=== PATIENT | female | born 1955 | race Caucasian/White ===

== ENCOUNTER 2016-11-22 09:17 | Emergency (ER) | payer OTHER, MEDICAID ==
[2016-11-22 09:20] VITALS: BP 156/77; BMI 32.1
[2016-11-22] MEDS ORDERED: DILAUDID INJ IM ONE (09:24)
--- NOTE | 2016-11-22 09:25 | DR.FBACK ---
HPI - Time Seen Time seen: 09:22 - PCP Primary Care Physician: YOVANI SHAIKH - Complaint Chief Complaint Doctor Comments: Patient states that she bent over on yesterday to pickling grader something and has been in pain since. She admits to back surgery and takes percocet 10-325 and it has not eased the pain. Chief Complaint:: PT. STATES YESTERDAY SHE BENT OVER TO PICK SOMETHING UP AND HER BACK "CAUGHT" AND SHE HAD A HARD TIME STANDING BACK UP. PT. C/O LOWER BACK PAIN. - Source History Provided: Patient - Mode of Arrival Mode of Arrival: Ambulatory - Timing Onset of Chief Complaint: 11/21/16 PMH - PMH Past Medical History: Yes Past Medical History: Hypertension Past Medical History Comment: CHRONIC BACK PAIN, TIA Past Surgical History: Yes Surgical History: Appendectomy, , Hysterectomy, Joint Replacement, Ortho Surgery - Family History History of Family Medical Conditions: Yes Family Medical History: Diabetes Mellitus, Cancer, [place], Sudden Cardiac , Hypertension - Social History Does patient currently use any type of tobacco product: No Have you used tobacco products in the last 12 months: No Type of Tobacco Use: None Does any household member use tobacco: No Alcohol Use: None Do you use any recreational Drugs:: No Lives With: Significant Other Lives Where: Home - infectious screening In the last 2 months have you had wt loss of >10#?: NO Have you had fever, night sweats or hemotysis?: No Have you traveled outside the country in the last 6 months?: No Isolation: Standard ROS - Review of Systems Eyes: No Symptoms Reported ENTM: No Symptoms Reported Respiratoy: No Symptoms Reported Cardiovascular: No Symptoms Reported Gastrointestinal/Abdominal: No Symptoms Reported Genitourinary: No Symptoms Reported Neurological: No Symptoms Reported Musculoskeletal: Back Pain Integumentary: No Symptoms Reported Hematologic/Lymphatic: No Symptoms Reported Endocrine: No Symptoms Reported, Increased Hunger Psychiatric: No Symptoms Reported All Other Systems: Reviewed and Negative PE - Vitals Vital Signs: Temp Pulse Resp BP BP BP Pulse Ox 11/22/16 09:17 97.8 F 73 20 156/77 98 07/15/16 11:23 116/63 04/01/14 11:57 169/85 04/01/14 04:00 139/70 - General Limitations: No Limitations General Appearance: Alert, In No Apparent Distress - Head Head Exam: Normal Inspection, Atraumatic - Eyes Eye exam: Normal Appearance, PERRL, EOMI - ENT ENT Exam: Normal Exam - Chest Chest Inspection: Normal Inspection - Respiratory Respiratory Exam: Normal Lung Sounds Bilat Respiratory Exam: Bilateral Clear to Auscultation - Cardiovascular Cardiovascular Exam: Regular Rate, Normal Rhythm - Abdominal Exam Abdominal Exam: Normal Inspection Abdominal Tenderness: negative: RUQ, RLQ, LUQ, LLQ, Epigastrium, Suprapubic, Diffuse, Mild, Moderate, Severe, Other - Genitourinary External Exam: Female: Deferred : Speculum Exam (Female): Deferred : Bimanual Exam (female): Deferred - Extremities Extremities Exam: Normal Inspection, Full ROM - Back Back Exam: Normal Inspection - Neurological Neurological Exam: Alert, Oriented X3, CN II-XII Intact - Psychiatric Psychiatric Exam: Normal Affect - Skin Skin Exam: Warm, Dry, Intact Course - Reevaluation 1st: Improved (1230), Unchanged - Diagnosis Discharge Problem: Protruded lumbar disc - Discharge Plan Condition: Stable Prescriptions: Oxycodone W/ Acetaminophen [Percocet 10-325 mg] 1 tab PO Q4-6H PRN #12 tab PRN Reason: Severe Pain - Follow ups/Referrals Follow ups/Referrals: TOD AUSTIN [Primary Care Provider] - 3 days - Instructions
[2016-11-22] MEDS ORDERED: DILAUDID INJ ONE (09:27)
[2016-11-22] MEDS ORDERED: VALIUM INJ IM ONE (09:51)
[2016-11-22] MEDS ORDERED: VALIUM INJ ONE (09:53)
--- NOTE | 2016-11-22 11:32 | CT ---
HISTORY: Back pain Study: CT lumbar spine without contrast Comparison: None Technique: Axial non contrast images with coronal and sagittal reformats. Dose reduction procedures were used with MA/kv adjusted for body size. Findings: The bones are mildly osteopenic. The alignment is normal. The vertebral bodies are of average height . The pedicles, spinous processes, and posterior elements are intact. The SI joints and sacrum are n ormal. The disc levels are evaluated as follows: L1-2 level: No evidence for compressive disc disease. The neural foramina are patent. The joints are normal. L2-3 level: There is broad-based disc bulging which effaces the thecal sac and contributes to mild l ateral recess narrowing bilaterally. The joints are normal. L3-4 level: There is broad-based disc bulging which contributes along with pedicular shortening liga mentous hypertrophy and mild facet arthropathy to a relative spinal stenosis with marked lateral rec ess and foraminal narrowing bilaterally slightly worse on the right than the left. L4-5 level: There is degenerative disc disease with vacuum phenomenon present. There is broad-based disc protrusion with some subligamentous extrusion of disc material caudally and to the left. These findings contribute along with spondylitic change to foraminal narrowing an lateral recess narrowing bilaterally left worse than right. MRI may be of further diagnostic value. L5-S1 level: Broad-based disk bulging is present. The bulging disk abuts but does not displace the n erve roots. The bulging contributes to mild lateral recess narrowing bilaterally. Bilateral facet ar thropathy is present. IMPRESSION: As above Reported By:
== END 2016-11-22 12:35 | disposition home or self-care (01) ==
LOC: ER 09:31
DX: M51.06 Intervertebral disc disorders with myelopathy, lumbar region (principal)
CPT/HCPCS: 72131; 96372; 99282; 99283; J3360

== ENCOUNTER 2018-01-18 08:48 | Observation (INO) ==
[2018-01-18] MEDS ORDERED: TYLENOL 325 MG TAB PO PRN (10:13)
[2018-01-18] MEDS ORDERED: BENADRYL INJ 50 MG VIAL IVP PRN (10:13)
[2018-01-18] MEDS ORDERED: NS 1000 ML 1,000 ML ONE (10:17)
[2018-01-18] MEDS: NS 1000 ML 1,000 ML IV SCH (10:39)
[2018-01-18] MEDS: NS 500 ML IV 500 ML IV ONE ×2 (10:39→16:50)
[2018-01-18 11:23] LABS: ALANINE AMINOTRANSFERASE 15 Units/L (12-78); ALBUMIN 3.6 g/dL (3.4-5.0); ALKALINE PHOSPHATASE 36 Units/L (46-116); ASPARTATE AMINO TRANSFERASE 16 Units/L (15-37); BLOOD UREA NITROGEN 24 mg/dL (7-18); CALCIUM 9.1 mg/dL (8.5-10.1); CARBON DIOXIDE 29.2 mmol/L (21-32); CHLORIDE 105 mmol/L (98-107); COR NA(FOR HYPERGLY) 144 mmol/L (136-145); CREATININE 1.25 mg/dL (0.55-1.02); SODIUM 143 mmol/L (136-145); TOTAL PROTEIN 7.4 g/dL (6.4-8.2); eGFR NON BLACK RACES 46 (>60)
[2018-01-18 11:26] LABS: BASOPHILS # (AUTO) 0.1 X10^3/uL (0.0-0.1); BASOPHILS % (AUTO) 1.1 % (0.2-1.0); EOSINOPHILS # (AUTO) 0.1 x10^3/uL (0.0-0.2); HEMATOCRIT 21.7 % (36.0-47.0); LYMPHOCYTES # (AUTO) 1.4 X10^3/uL (1.3-2.9); LYMPHOCYTES % (AUTO) 26.3 % (21.0-51.0); MEAN CORPUSCULAR HEMOGLOBIN 22.8 pg (27.0-34.0); MEAN CORPUSCULAR HGB CONC 30.9 g/dL (33.0-35.0); MEAN CORPUSCULAR VOLUME 73.7 fL (80.0-100.0); MEAN PLATELET VOLUME 8.1 fL (7.4-11.0); MONOCYTES # (AUTO) 0.4 x10^3/uL (0.3-0.8); MONOCYTES % (AUTO) 6.9 % (0.0-13.0); NEUTROPHILS # (AUTO) 3.4 x10^3/uL (2.2-4.8); NEUTROPHILS % (AUTO) 63.7 % (42.0-75.0); PLATELET COUNT 486 X10^3/uL (150.0-450.0); RED BLOOD COUNT 2.94 X10^6/uL (3.5-5.4); RED CELL DISTRIBUTION WIDTH 19.1 % (11.6-16.5); WHITE BLOOD COUNT 5.3 X10^3/uL (3.6-10.0)
[2018-01-18 11:34] LABS: HEMOGLOBIN 6.7 g/dL (12.0-16.0)
[2018-01-18 11:45] LABS: HYPOCHROMASIA 1+; PLATELET MORPHOLOGY COMMENT NORMAL (NORMAL)
[2018-01-18] MEDS: PERCOCET TAB 5/325 MG PO SCH ×3 (14:21→21:58)
[2018-01-18 14:46] VITALS: BMI 36.8
[2018-01-18] MEDS ORDERED: NS 250 ML IV 250 ML IV ONE ×2 (16:24→22:39)
[2018-01-18] MEDS ORDERED: AMBIEN PO PRN (21:12)
[2018-01-19] MEDS: NS 1000 ML 1,000 ML IV SCH ×2 (01:34→14:38)
[2018-01-19] MEDS: PERCOCET TAB 5/325 MG PO PRN ×3 (04:33→19:50)
[2018-01-19 05:32] LABS: BASOPHILS # (AUTO) 0.1 X10^3/uL (0.0-0.1); BASOPHILS % (AUTO) 1.2 % (0.2-1.0); EOSINOPHILS # (AUTO) 0.2 x10^3/uL (0.0-0.2); EOSINOPHILS % (AUTO) 2.4 % (0.9-2.9); HEMATOCRIT 30.6 % (36.0-47.0); HEMOGLOBIN 9.8 g/dL (12.0-16.0); LYMPHOCYTES # (AUTO) 1.4 X10^3/uL (1.3-2.9); LYMPHOCYTES % (AUTO) 20.3 % (21.0-51.0); MEAN CORPUSCULAR HEMOGLOBIN 24.2 pg (27.0-34.0); MEAN CORPUSCULAR VOLUME 75.6 fL (80.0-100.0); MEAN PLATELET VOLUME 8.1 fL (7.4-11.0); MONOCYTES # (AUTO) 0.7 x10^3/uL (0.3-0.8); MONOCYTES % (AUTO) 9.9 % (0.0-13.0); NEUTROPHILS # (AUTO) 4.5 x10^3/uL (2.2-4.8); NEUTROPHILS % (AUTO) 66.2 % (42.0-75.0); PLATELET COUNT 472 X10^3/uL (150.0-450.0); RED BLOOD COUNT 4.05 X10^6/uL (3.5-5.4); RED CELL DISTRIBUTION WIDTH 19.5 % (11.6-16.5); WHITE BLOOD COUNT 6.7 X10^3/uL (3.6-10.0)
[2018-01-19 05:50] LABS: ALANINE AMINOTRANSFERASE 16 Units/L (12-78); ALBUMIN 3.7 g/dL (3.4-5.0); ALKALINE PHOSPHATASE 37 Units/L (46-116); ASPARTATE AMINO TRANSFERASE 17 Units/L (15-37); BLOOD UREA NITROGEN 18 mg/dL (7-18); CALCIUM 9.2 mg/dL (8.5-10.1); CARBON DIOXIDE 26.8 mmol/L (21-32); CHLORIDE 103 mmol/L (98-107); CREATININE 1.08 mg/dL (0.55-1.02); SODIUM 140 mmol/L (136-145); TOTAL PROTEIN 7.6 g/dL (6.4-8.2); eGFR NON BLACK RACES 55 (>60)
[2018-01-19 06:22] LABS: ANISOCYTOSIS 1+; HYPOCHROMASIA 2+; MICROCYTOSIS SLIGHT; PLATELET MORPHOLOGY COMMENT NORMAL (NORMAL)
[2018-01-19] MEDS ORDERED: PATIENT'S HOME MEDICATION (Esomeprazole Magnesium [Nexium 40mg Cap] 40 MG) PO SCH (10:00)
[2018-01-19] MEDS: NexIUM PO SCH ×2 (11:36→21:09)
[2018-01-19] MEDS: SYNTHROID 112 mcg TAB PO SCH (11:37)
[2018-01-19] MEDS: SINGULAIR TAB 10 MG PO SCH (11:37)
[2018-01-19] MEDS: NORVASC TAB 5 MG PO SCH (11:37)
[2018-01-19] MEDS: ZESTORETIC 20/25 MG PO SCH (11:37)
[2018-01-19 13:41] LABS: HEMATOCRIT 31.3 % (36.0-47.0)
[2018-01-19] MEDS ORDERED: PATIENT'S HOME MEDICATION (Gabapentin [Gabapentin] 800 MG) PO SCH (14:00)
[2018-01-19] MEDS: NEURONTIN CAP 400 MG PO SCH ×2 (14:39→21:09)
[2018-01-19] MEDS: SOMA TAB 350 MG PO SCH ×2 (14:39→21:10)
[2018-01-19] MEDS ORDERED: AMBIEN PO SCH (21:00)
[2018-01-19] MEDS ORDERED: ZOLOFT PO SCH (21:00)
[2018-01-19] MEDS ORDERED: TRICOR TAB 145 MG PO SCH (21:00)
[2018-01-19] MEDS ORDERED: LIPITOR TAB 40 MG PO SCH (21:00)
[2018-01-19 22:51] LABS: HEMATOCRIT 29.8 % (36.0-47.0); HEMOGLOBIN 9.6 g/dL (12.0-16.0)
[2018-01-20] MEDS: PERCOCET TAB 5/325 MG PO PRN ×2 (03:51→08:39)
[2018-01-20 05:25] LABS: BASOPHILS # (AUTO) 0.1 X10^3/uL (0.0-0.1); BASOPHILS % (AUTO) 0.9 % (0.2-1.0); EOSINOPHILS # (AUTO) 0.2 x10^3/uL (0.0-0.2); EOSINOPHILS % (AUTO) 2.7 % (0.9-2.9); HEMATOCRIT 31.2 % (36.0-47.0); HEMOGLOBIN 9.8 g/dL (12.0-16.0); LYMPHOCYTES # (AUTO) 1.9 X10^3/uL (1.3-2.9); LYMPHOCYTES % (AUTO) 25.8 % (21.0-51.0); MEAN CORPUSCULAR HEMOGLOBIN 23.8 pg (27.0-34.0); MEAN CORPUSCULAR HGB CONC 31.5 g/dL (33.0-35.0); MEAN CORPUSCULAR VOLUME 75.6 fL (80.0-100.0); MEAN PLATELET VOLUME 8.2 fL (7.4-11.0); MONOCYTES # (AUTO) 0.9 x10^3/uL (0.3-0.8); MONOCYTES % (AUTO) 11.9 % (0.0-13.0); NEUTROPHILS # (AUTO) 4.4 x10^3/uL (2.2-4.8); NEUTROPHILS % (AUTO) 58.7 % (42.0-75.0); PLATELET COUNT 477 X10^3/uL (150.0-450.0); RED BLOOD COUNT 4.12 X10^6/uL (3.5-5.4); RED CELL DISTRIBUTION WIDTH 19.6 % (11.6-16.5); WHITE BLOOD COUNT 7.5 X10^3/uL (3.6-10.0)
[2018-01-20] MEDS: NEURONTIN CAP 400 MG PO SCH (05:35)
[2018-01-20] MEDS: SOMA TAB 350 MG PO SCH (05:36)
[2018-01-20 05:48] LABS: ALANINE AMINOTRANSFERASE 14 Units/L (12-78); ALBUMIN 3.5 g/dL (3.4-5.0); ALKALINE PHOSPHATASE 37 Units/L (46-116); ASPARTATE AMINO TRANSFERASE 16 Units/L (15-37); BLOOD UREA NITROGEN 19 mg/dL (7-18); CARBON DIOXIDE 26.6 mmol/L (21-32); CHLORIDE 105 mmol/L (98-107); CREATININE 1.12 mg/dL (0.55-1.02); SODIUM 141 mmol/L (136-145); TOTAL PROTEIN 7.3 g/dL (6.4-8.2); eGFR NON BLACK RACES 53 (>60)
[2018-01-20 05:57] LABS: CALCIUM 8.9 mg/dL (8.5-10.1)
[2018-01-20 06:07] LABS: PLATELET MORPHOLOGY COMMENT NORMAL (NORMAL)
[2018-01-20 06:08] LABS: ANISOCYTOSIS SLIGHT; HYPOCHROMASIA 1+; MICROCYTOSIS SLIGHT; STOMATOCYTES SLIGHT
[2018-01-20] MEDS: NS 1000 ML 1,000 ML IV SCH (07:08)
[2018-01-20] MEDS: ZESTORETIC 20/25 MG PO SCH (08:35)
[2018-01-20] MEDS: NORVASC TAB 5 MG PO SCH (08:35)
[2018-01-20] MEDS: SYNTHROID 112 mcg TAB PO SCH (08:35)
[2018-01-20] MEDS: SINGULAIR TAB 10 MG PO SCH (08:35)
[2018-01-20] MEDS: NexIUM PO SCH (08:35)
--- NOTE | 2018-01-20 08:39 | DR.UPDATE ---
H&P Update History and Physical Update: WAS SEEN IN THE OFFICE ON 01/17/18. OUTPATIENT LABS WERE OBTAINED AND REVEALED A HGB OF 6.8, HCT 23.6. PATIENT WAS ADMITTED FOR FURTHER EVALUATION AND TREATMENT ON 01/18/18. A H&P WAS COMPLETED PRIOR TO ADMISSION. PATIENT HAS BEEN SEEN AND EXAMINED WITH NO CHANGES NOTED TO H&P. Changes noted: NO Yes with the following:
--- NOTE | 2018-01-20 08:41 | PCM.PROG ---
Progress Note - Progress Note for Day of Date: 01/19/18 - Subjective Subjective: WAS ADMITTED FOR ANEMIA AND GENERALIZED WEAKNESS. TODAY, SHE IS ALERT AND ORIENTED, LYING IN BED ON MORNING ROUNDS. SHE CONTINUES WITH COMPLAINTS OF GENERALIZED WEAKNESS THIS MORNING, BUT WITH SOME IMPROVEMENT SINCE ADMISSION. SHE RECEIVED TWO UNITS OF PACKED RED BLOOD CELLS LAST NIGHT. HER VITALS THIS MORNING ARE 98.4-70-20-98%-122/87. LABS WERE OBTAINED. ABNORMAL LAB VALUES INCLUDE THE FOLLOWING: HGB 9.8, HCT 30.6, BUN 24, CREATININE 1.25, GLUCOSE 127, ALK PHOS 36. TODAY, WE WILL CONTINUE TO MONITOR HER HEMOGLOBIN AND HEMATOCRIT AND TRANSFUSE ADDITIONAL UNITS OF PRBC IF NEEDED. OTHERWISE, WE PLAN TO FOLLOW UP WITH AM LABS AND CONTINUE TO MONITOR PATIENT. - Past Medical Family Social History Past Med/Fam/Surg Hx: No changes since H&P Allergies: Allergies No Known Drug Allergies Allergy (Verified 01/18/18 10:24) - Review of Systems ROS: No change since H&P - Vital Signs and I&O's Vital Signs: Temperature 98.2 F Pulse Rate [Left Brachial] 67 Pulse Rate [Right Brachial] 84 Respiratory Rate 18 Blood Pressure [Right Arm] 148/69 Blood Pressure [Left Arm] 135/62 Blood Pressure 156/77 O2 Sat by Pulse Oximetry 97 Intake and Output: Intake & Output 01/17/18 01/18/18 01/19/18 01/20/18 11:59 11:59 11:59 11:59 Intake Total 890 / 890 1920 / 1920 Balance 890 / 890 1920 / 1920 - Physical Exam Oriented: Normal Eyes: Normal Ear: Normal Nose: Normal Throat: Normal Respiratory: Normal Cardiovascular: Normal : Normal Auscultation: Bowel Sounds: Normal Palpation: Normal Tenderness: Normal Skin: Normal Musculoskeletal: Normal Psychiatric: Normal Mood Description: Calm Affect: Normal Speech Pattern: Clear, Appropriate - Laboratory and Diagnostics Result Diagrams: 01/20/18 04:15 01/20/18 04:15 Labs: Laboratory WBC 7.5 X10^3/uL (3.6-10.0) 01/20/18 04:15 RBC 4.12 X10^6/uL (3.5-5.4) 01/20/18 04:15 Hgb 9.8 g/dL (12.0-16.0) L 01/20/18 04:15 Hct 31.2 % (36.0-47.0) L 01/20/18 04:15 MCV 75.6 fL (80.0-100.0) L 01/20/18 04:15 MCH 23.8 pg (27.0-34.0) L 01/20/18 04:15 MCHC 31.5 g/dL (33.0-35.0) L 01/20/18 04:15 RDW 19.6 % (11.6-16.5) H 01/20/18 04:15 Plt Count 477 X10^3/uL (150.0-450.0) H 01/20/18 04:15 Plt Count Comment Adequate (ADEQUATE) 01/20/18 04:15 MPV 8.2 fL (7.4-11.0) 01/20/18 04:15 Neut % (Auto) 58.7 % (42.0-75.0) 01/20/18 04:15 Lymph % (Auto) 25.8 % (21.0-51.0) 01/20/18 04:15 [place] % (Auto) 11.9 % (0.0-13.0) 01/20/18 04:15 Eos % (Auto) 2.7 % (0.9-2.9) 01/20/18 04:15 Baso % (Auto) 0.9 % (0.2-1.0) 01/20/18 04:15 Neut # (Auto) 4.4 x10^3/uL (2.2-4.8) 01/20/18 04:15 Lymph # (Auto) 1.9 X10^3/uL (1.3-2.9) 01/20/18 04:15 [place] # (Auto) 0.9 x10^3/uL (0.3-0.8) H 01/20/18 04:15 Eos # (Auto) 0.2 x10^3/uL (0.0-0.2) 01/20/18 04:15 Baso # (Auto) 0.1 X10^3/uL (0.0-0.1) 01/20/18 04:15 Absolute Nucleated RBC 0.1 /100WBC 01/20/18 04:15 Plt Morphology Comment Normal (NORMAL) 01/20/18 04:15 RBC Morphology Abnormal (NORMAL) A 01/20/18 04:15 Hypochromasia 1+ A 01/20/18 04:15 Anisocytosis Slight A 01/20/18 04:15 Microcytosis Slight A 01/20/18 04:15 Macrocytosis 1+ A 01/19/18 04:55 Stomatocytes Slight A 01/20/18 04:15 Sodium 141 mmol/L (136-145) 01/20/18 04:15 Corrected Sodium TNP 01/20/18 04:15 Potassium 3.9 mmol/L (3.5-5.1) 01/20/18 04:15 Chloride 105 mmol/L (98-107) 01/20/18 04:15 Carbon Dioxide 26.6 mmol/L (21-32) 01/20/18 04:15 BUN 19 mg/dL (7-18) H 01/20/18 04:15 Creatinine 1.12 mg/dL (0.55-1.02) H 01/20/18 04:15 Est GFR (MDRD) Af Amer > 60 (>60) 01/20/18 04:15 Est GFR (MDRD) Non-Af 53 (>60) L 01/20/18 04:15 Glucose 90 mg/dL (65-99) 01/20/18 04:15 Calcium 8.9 mg/dL (8.5-10.1) 01/20/18 04:15 Corrected Calcium TNP 01/20/18 04:15 Total Bilirubin 0.20 mg/dL (0.2-1.0) 01/20/18 04:15 AST 16 Units/L (15-37) 01/20/18 04:15 ALT 14 Units/L (12-78) 01/20/18 04:15 Alkaline Phosphatase 37 Units/L (46-116) L 01/20/18 04:15 Total Protein 7.3 g/dL (6.4-8.2) 01/20/18 04:15 Albumin 3.5 g/dL (3.4-5.0) 01/20/18 04:15 Globulin 3.8 g/dL (2.5-4.5) 01/20/18 04:15 Albumin/Globulin Ratio 0.9 Ratio (1.1-2.1) L 01/20/18 04:15 Stool Description Fob tube 01/18/18 13:35 Stl Occult Blood (IFOB) Negative (NEGATIVE) 01/18/18 13:35 Blood Type O POSITIVE 01/18/18 10:57 Antibody Screen Negative 01/18/18 10:57 Crossmatch See Detail 01/18/18 10:57 - Plan (1) Anemia Status: Acute Qualifiers: Anemia type: iron deficiency Iron deficiency anemia type: unspecified iron deficiency Qualified Code(s): D50.9 - Iron deficiency anemia, unspecified Plan: MONITOR H&H AND TRANSFUSE ADDITIONAL UNITS OF PRBC IF NEEDED
[2018-01-20 12:19] VITALS: BP 142/62
--- NOTE | 2018-02-16 00:03 | DR.CARTERD ---
- Discharge Summary for: Discharge Summary for Date of:: 01/20/18 - Admission Date Date of Admission: 01/18/18 - Admission Diagnoses Admission Diagnosis: (1) Symptomatic Anemia (2) Shortness of breath (3) Weakness - Discharge Date Discharge Date: 01/20/18 - Discharge Diagnoses Discharge Diagnosis: (1) Symptomatic Anemia (2) Shortness of breath (3) Weakness - Hospital Course Hospital Course: Day one, Ms. Quick presented to the hospital as a direct admission after being seen in the office one day prior. Outpatient labs revealed a low hemoglobin of 6.6. Patient stated she became weak with breathing problems and no energy. Symptoms started two weeks prior and had become worse. Patient admitted to the hospital as observation and labs obtained on arrival revealed a hemoglobin of 6.7. Patient received two units of PRBCs. Medical History: TIA, Hypertension, Gerd, UTI's, Muscle Weakness, Back Pain, Hypothyroidism, Anemia. Abnormal Labs: RBC 2.94, Hgb 6.7, Hct 21.7, MCV 73.7, MCH 22.8, MCHC 30.9, RDW 19.1, Plt count 486, BUN 24, Creatinine 1.25, GFR af 56, GFR non 46, Glucose 127 , Alk Phos 36, A/G Ratio 0.9. Day two, Ms. Quick was admitted for anemia and generalized weakness. She was alert and oriented, lying in bed on morning rounds. SHe continued with complaints of generalized weakness, but with some improvement since admission. She received two units of packed red blood cells through the night. Her vitals were: 98.4-70-20-98%-122/87. Abnormal labs were: Hgb 9.8, Hct 30.6, Bun 24, Creat 1.25, Glucose 127, Alk phos 36. We continued treatment and continued to monitor Hemoglobin and Hematocrit. Day three, Hemoglobin remained stable at 9.8. Patient reported she felt well. She denied weakness or shortness of breath. Patient was doing well with no acute distress noted. Vital signs stable. Labs wnl. We planned for discharge. Instructions for medications and follow up were discussed with patient and family, both voiced understanding. Patient discharged home in stable condition with family. - Discharge Medications Discharge Medications: Home Medication List hydrochlorothiazide 25 mg PO DAILY 01/18/18 [History] lisinopril-hydrochlorothiazide 20 - 25 mg PO DAILY 01/18/18 [History] oxycodone-acetaminophen 10 - 325 mg PO QID 01/18/18 [History] zolpidem 10 mg PO HS 01/18/18 [History] iron-folic acid-mv, min cmb#15 [Hemocyte-Plus] 1 cap PO DAILY #30 cap 01/20/18 [ Rx] Prescriptions: iron-folic acid-mv, min cmb#15 [Hemocyte-Plus] [facility] [place] Home medications Aspirin [[place] Aspirin EC Low Dose] 81 mg PO DAILY 10/10/12 Clopidogrel Bisulfate [Plavix] 75 mg PO DAILY 10/10/12 Esomeprazole Magnesium [Nexium 40MG CAP] 40 mg PO BID 10/10/12 carisoprodol 350 mg PO TID 10/10/12 fenofibrate nanocrystallized 145 mg PO HS 10/10/12 levothyroxine 112 mcg PO DAILY 10/10/12 montelukast 10 mg PO DAILY 10/10/12 sertraline 50 mg PO HS 10/10/12 atorvastatin 40 mg PO HS 03/26/14 clonazepam 1 mg PO HS 03/26/14 gabapentin 800 mg PO TID 03/26/14 - Discharge Disposition Discharge Disposition: Patient is to follow up in our office in one week.
== END 2018-01-20 13:20 | disposition home or self-care (01) ==
LOC: MED/SURG
PROVIDERS: ADMIT Internal Medicine; ATTEND Internal Medicine
DX: R94.4 Abnormal results of kidney function studies; E87.5 Hyperkalemia; D50.8 Other iron deficiency anemias; Z79.899 Other long term (current) drug therapy; R53.83 Other fatigue; R73.09 Other abnormal glucose
CPT/HCPCS: 36415; 36430; 80053; 82270; 85014; 85018; 85025; 86850; 86900; 86901; 86922; 94760; A4222; P9016; G0378; J1200; J3490; J7030; J7040; J7050

== ENCOUNTER 2018-05-12 09:08 | Inpatient (IN) ==
[2018-05-12] MEDS ORDERED: TUSSIONEX PENNKINETIC SUSP PO PRN (09:42)
[2018-05-12] MEDS ORDERED: NS 1/2 1000 ML IV 1,000 ML IV ONE (09:54)
[2018-05-12 10:18] LABS: BASOPHILS # (AUTO) 0.1 X10^3/uL (0.0-0.1); BASOPHILS % (AUTO) 1.2 % (0.2-1.0); EOSINOPHILS # (AUTO) 0.2 x10^3/uL (0.0-0.2); EOSINOPHILS % (AUTO) 3.4 % (0.9-2.9); HEMATOCRIT 27.5 % (36.0-47.0); LYMPHOCYTES # (AUTO) 1.8 X10^3/uL (1.3-2.9); LYMPHOCYTES % (AUTO) 35.2 % (21.0-51.0); MEAN CORPUSCULAR HEMOGLOBIN 28.8 pg (27.0-34.0); MEAN CORPUSCULAR HGB CONC 32.7 g/dL (33.0-35.0); MEAN CORPUSCULAR VOLUME 88.2 fL (80.0-100.0); MEAN PLATELET VOLUME 8.3 fL (7.4-11.0); MONOCYTES # (AUTO) 0.6 x10^3/uL (0.3-0.8); MONOCYTES % (AUTO) 12.8 % (0.0-13.0); NEUTROPHILS # (AUTO) 2.4 x10^3/uL (2.2-4.8); NEUTROPHILS % (AUTO) 47.4 % (42.0-75.0); PLATELET COUNT 456 X10^3/uL (150.0-450.0); RED BLOOD COUNT 3.12 X10^6/uL (3.5-5.4); RED CELL DISTRIBUTION WIDTH 15.1 % (11.6-16.5)
--- NOTE | 2018-05-12 10:25 | RAD ---
Examination: Chest, PA and lateral views History: Cough and fever Comparison 03/31/2014 Findings: Continued normal heart size with clear lungs and pleural spaces. Impression: No change; no acute findings. Reported By:
[2018-05-12 10:27] LABS: ALANINE AMINOTRANSFERASE 23 Units/L (12-78); ALBUMIN 3.7 g/dL (3.4-5.0); ALKALINE PHOSPHATASE 43 Units/L (46-116); ASPARTATE AMINO TRANSFERASE 21 Units/L (15-37); BLOOD UREA NITROGEN 29 mg/dL (7-18); CALCIUM 9.1 mg/dL (8.5-10.1); CARBON DIOXIDE 27.6 mmol/L (21-32); CHLORIDE 102 mmol/L (98-107); CREATININE 1.43 mg/dL (0.55-1.02); SODIUM 140 mmol/L (136-145); TOTAL PROTEIN 7.4 g/dL (6.4-8.2); eGFR NON BLACK RACES 40 (>60)
[2018-05-12] MEDS ORDERED: SALINE 3% 15 ML NEB TX NEB ONE (10:57)
[2018-05-12] MEDS: NS 1/2 1000 ML IV 1,000 ML IV SCH (10:59)
[2018-05-12 11:40] VITALS: BMI 35.5
[2018-05-12] MEDS: DUONEB 0.5 MG/3 MG NEB SCH ×2 (12:10→16:15)
[2018-05-12] MEDS ORDERED: NS 100 ML IV + SPIKE MINIBAG* 100 ML IV ONE (13:12)
[2018-05-12] MEDS: ZOSYN VIAL 4.5 GRAMS 4.5 G in NS 100 ML IV + SPIKE MINIBAG* 100 ML IV SCH ×3 (13:34→22:16)
[2018-05-12] MEDS: NORCO 5/325 MG TAB PO PRN (13:35)
[2018-05-12] MEDS: ROBITUSSIN DM PO SCH ×3 (13:35→20:39)
[2018-05-12] MEDS ORDERED: ZOSYN VIAL 4.5 GRAMS IV SCH (14:00)
[2018-05-12] MEDS ORDERED: ANTIVERT TAB 25 MG PO PRN (20:19)
[2018-05-12] MEDS: NexIUM PO SCH (20:39)
[2018-05-12] MEDS: TUSSIONEX PENNKINETIC SUSP PO PRN (20:39)
[2018-05-12] MEDS ORDERED: PLAVIX PO SCH (21:00)
[2018-05-12] MEDS: PULMICORT NEB TX 0.5 MG NEB SCH (22:12)
[2018-05-12] MEDS: XOPENEX 1.25 MG/3 ML NEBULE NEB SCH (22:12)
[2018-05-12] MEDS: TRICOR TAB 145 MG PO SCH (22:15)
[2018-05-12] MEDS: ZOLOFT PO SCH (22:15)
[2018-05-12] MEDS: LIPITOR TAB 40 MG PO SCH (22:15)
[2018-05-12] MEDS: SINGULAIR TAB 10 MG PO SCH (22:15)
[2018-05-12] MEDS: NEURONTIN CAP 400 MG PO SCH (22:16)
[2018-05-13] MEDS ORDERED: NS 1/2 1000 ML IV 1,000 ML IV ONE ×2 (00:05→15:13)
[2018-05-13] MEDS: NS 1/2 1000 ML IV 1,000 ML IV SCH ×2 (01:16→15:14)
[2018-05-13] MEDS: NORCO 5/325 MG TAB PO PRN (01:16)
[2018-05-13 05:59] LABS: BASOPHILS # (AUTO) 0.1 X10^3/uL (0.0-0.1); BASOPHILS % (AUTO) 1.1 % (0.2-1.0); EOSINOPHILS # (AUTO) 0.2 x10^3/uL (0.0-0.2); EOSINOPHILS % (AUTO) 3.2 % (0.9-2.9); HEMATOCRIT 25.7 % (36.0-47.0); HEMOGLOBIN 8.6 g/dL (12.0-16.0); LYMPHOCYTES # (AUTO) 1.9 X10^3/uL (1.3-2.9); LYMPHOCYTES % (AUTO) 31.7 % (21.0-51.0); MEAN CORPUSCULAR HEMOGLOBIN 29.4 pg (27.0-34.0); MEAN CORPUSCULAR HGB CONC 33.5 g/dL (33.0-35.0); MEAN CORPUSCULAR VOLUME 87.6 fL (80.0-100.0); MEAN PLATELET VOLUME 8.3 fL (7.4-11.0); MONOCYTES # (AUTO) 0.7 x10^3/uL (0.3-0.8); MONOCYTES % (AUTO) 11.1 % (0.0-13.0); NEUTROPHILS # (AUTO) 3.2 x10^3/uL (2.2-4.8); NEUTROPHILS % (AUTO) 52.9 % (42.0-75.0); PLATELET COUNT 402 X10^3/uL (150.0-450.0); RED BLOOD COUNT 2.94 X10^6/uL (3.5-5.4); RED CELL DISTRIBUTION WIDTH 14.8 % (11.6-16.5)
[2018-05-13] MEDS: ZOSYN VIAL 4.5 GRAMS 4.5 G in NS 100 ML IV + SPIKE MINIBAG* 100 ML IV SCH ×3 (06:06→21:55)
[2018-05-13] MEDS: SYNTHROID 112 mcg TAB PO SCH (06:06)
[2018-05-13] MEDS: NEURONTIN CAP 400 MG PO SCH ×3 (06:06→21:52)
--- NOTE | 2018-05-13 06:17 | RAD ---
Examination: Portable AP chest History: SOB Comparison 05/12/2018 Findings: Continued normal transverse heart diameter with clear lungs and pleural spaces. Impression: No change; no acute findings. Reported By:
[2018-05-13 07:07] LABS: ALBUMIN 3.2 g/dL (3.4-5.0); CALCIUM 8.6 mg/dL (8.5-10.1); CARBON DIOXIDE 25.3 mmol/L (21-32); COR CA(FOR HYPOALB) 9.2 mg/dL (8.5-10.1); CREATININE 1.29 mg/dL (0.55-1.02); TOTAL PROTEIN 6.7 g/dL (6.4-8.2)
[2018-05-13] MEDS: ROBITUSSIN DM PO SCH ×5 (07:37→21:51)
[2018-05-13] MEDS: HYDROCHLOROTHIAZIDE 25 MG TAB PO SCH ×2 (07:38→08:34)
[2018-05-13] MEDS: PERCOCET TAB 5/325 MG PO SCH ×2 (07:38→09:42)
[2018-05-13] MEDS: ASPIRIN EC 81 MG PO SCH ×2 (07:38→08:33)
[2018-05-13] MEDS: NexIUM PO SCH ×3 (07:38→21:51)
[2018-05-13] MEDS: TUSSIONEX PENNKINETIC SUSP PO PRN ×2 (08:31→21:53)
[2018-05-13] MEDS: PLAVIX PO SCH (08:31)
[2018-05-13] MEDS: SOMA TAB 350 MG PO PRN (09:13)
[2018-05-13] MEDS: XOPENEX 1.25 MG/3 ML NEBULE NEB SCH ×4 (09:43→21:00)
[2018-05-13] MEDS: PULMICORT NEB TX 0.5 MG NEB SCH ×2 (09:43→21:00)
--- NOTE | 2018-05-13 11:40 | PCM.PROG ---
Progress Note - Progress Note for Day of Date of Exam: 05/13/18 - Subjective Subjective: 62 WF DIRECT ADMIT ON 05/12 WITH COPD WITH ACUTE AB, FAILED OUTPT TREATMENT. PT CURRENTLY ON IV ATBX, RESP THERAPY. PT CO CHEST WALL SORENESS "FROM COUGHING" PT HAS LOWER EXP WHEEZES AND HOARSE BARKING COUGH, MINIMAL SPUTUM PRODUCTION, PT CO " LEFT SIDE OF HEAD STOPPED UP" - Past Medical Family Social History Past Med/Fam/Surg Hx: No changes since H&P Allergies: Allergies No Known Drug Allergies Allergy (Verified 01/18/18 10:24) - Review of Systems ROS: No change since H&P - Vital Signs and I&O's Vital Signs: Temperature 99.1 F Pulse Rate [Right Brachial] 63 Pulse Rate [Left Brachial] 83 Pulse Rate 71 Respiratory Rate 18 Blood Pressure [Right Arm] 99/52 Blood Pressure [Left Arm] 137/62 Blood Pressure 142/62 O2 Sat by Pulse Oximetry 97 Intake and Output: Intake & Output 05/10/18 05/11/18 05/12/18 05/13/18 11:59 11:59 11:59 11:59 Intake Total 1636 / 1636 Balance 1636 / 1636 - Physical Exam Oriented: Normal Eyes: Normal Ear: Normal Nose: Normal Throat: Dry Respiratory: Wheezes Cardiovascular: Normal : Normal Auscultation: Bowel Sounds: Normal Palpation: Normal Tenderness: Normal Skin: Normal Musculoskeletal: Normal Psychiatric: Anxiety Affect: Anxious Speech Pattern: Clear, Appropriate - Laboratory and Diagnostics Result Diagrams: 05/13/18 05:20 05/13/18 05:20 Labs: Laboratory WBC 6.0 X10^3/uL (3.6-10.0) 05/13/18 05:20 RBC 2.94 X10^6/uL (3.5-5.4) L 05/13/18 05:20 Hgb 8.6 g/dL (12.0-16.0) L 05/13/18 05:20 Hct 25.7 % (36.0-47.0) L 05/13/18 05:20 MCV 87.6 fL (80.0-100.0) 05/13/18 05:20 MCH 29.4 pg (27.0-34.0) 05/13/18 05:20 MCHC 33.5 g/dL (33.0-35.0) 05/13/18 05:20 RDW 14.8 % (11.6-16.5) 05/13/18 05:20 Plt Count 402 X10^3/uL (150.0-450.0) 05/13/18 05:20 MPV 8.3 fL (7.4-11.0) 05/13/18 05:20 Neut % (Auto) 52.9 % (42.0-75.0) 05/13/18 05:20 Lymph % (Auto) 31.7 % (21.0-51.0) 05/13/18 05:20 [place] % (Auto) 11.1 % (0.0-13.0) 05/13/18 05:20 Eos % (Auto) 3.2 % (0.9-2.9) H 05/13/18 05:20 Baso % (Auto) 1.1 % (0.2-1.0) H 05/13/18 05:20 Neut # (Auto) 3.2 x10^3/uL (2.2-4.8) 05/13/18 05:20 Lymph # (Auto) 1.9 X10^3/uL (1.3-2.9) 05/13/18 05:20 [place] # (Auto) 0.7 x10^3/uL (0.3-0.8) 05/13/18 05:20 Eos # (Auto) 0.2 x10^3/uL (0.0-0.2) 05/13/18 05:20 Baso # (Auto) 0.1 X10^3/uL (0.0-0.1) 05/13/18 05:20 Absolute Nucleated RBC 0.4 /100WBC 05/13/18 05:20 Sodium 141 mmol/L (136-145) 05/13/18 05:20 Corrected Sodium 142 mmol/L (136-145) 05/13/18 05:20 Potassium 4.2 mmol/L (3.5-5.1) 05/13/18 05:20 Chloride 105 mmol/L (98-107) 05/13/18 05:20 Carbon Dioxide 25.3 mmol/L (21-32) 05/13/18 05:20 BUN 20 mg/dL (7-18) H 05/13/18 05:20 Creatinine 1.29 mg/dL (0.55-1.02) H 05/13/18 05:20 Est GFR (MDRD) Af Amer 54 (>60) L 05/13/18 05:20 Est GFR (MDRD) Non-Af 45 (>60) L 05/13/18 05:20 Glucose 121 mg/dL (65-99) H 05/13/18 05:20 Calcium 8.6 mg/dL (8.5-10.1) 05/13/18 05:20 Corrected Calcium 9.2 mg/dL (8.5-10.1) 05/13/18 05:20 Total Bilirubin 0.10 mg/dL (0.2-1.0) L 05/13/18 05:20 AST 21 Units/L (15-37) 05/13/18 05:20 ALT 22 Units/L (12-78) 05/13/18 05:20 Alkaline Phosphatase 48 Units/L (46-116) 05/13/18 05:20 Total Protein 6.7 g/dL (6.4-8.2) 05/13/18 05:20 Albumin 3.2 g/dL (3.4-5.0) L 05/13/18 05:20 Globulin 3.5 g/dL (2.5-4.5) 05/13/18 05:20 Albumin/Globulin Ratio 0.9 Ratio (1.1-2.1) L 05/13/18 05:20 Influenza Type A (PCR) Negative (NEGATIVE) 05/12/18 11:00 Influenza Type B (PCR) Negative (NEGATIVE) 05/12/18 11:00 - Plan (1) Bronchopneumonia Status: Acute Plan: BLOOD AND SPUTUM CUTLURES PER PNEUMONIA PROTOCOL. IV ATBX, RESP THERAPY. PULMONARY TOILETING, BP MONITORING. SUPPLEMENTAL O2. FLONASE AND ROBITUSSIN, REPEAT AM LABS (2) Essential hypertension Status: Chronic (3) Generalized anxiety disorder Status: Chronic (4) Gastroesophageal reflux disease Status: Chronic
[2018-05-13] MEDS: PERCOCET TAB 5/325 MG PO PRN ×2 (13:37→21:53)
[2018-05-13] MEDS: FLONASE NASAL SPRAY ENOSTRIL SCH (13:38)
[2018-05-13] MEDS: SOLU-Medrol 40 MG VIAL IVP SCH ×2 (15:14→21:52)
[2018-05-13] MEDS: SINGULAIR TAB 10 MG PO SCH (21:51)
[2018-05-13] MEDS: LIPITOR TAB 40 MG PO SCH (21:51)
[2018-05-13] MEDS: TRICOR TAB 145 MG PO SCH (21:52)
[2018-05-13] MEDS: ZOLOFT PO SCH (21:52)
[2018-05-14] MEDS: AMBIEN PO PRN ×2 (00:10→21:15)
[2018-05-14] MEDS: SOMA TAB 350 MG PO PRN ×3 (00:11→15:50)
[2018-05-14] MEDS ORDERED: NS 1/2 1000 ML IV 1,000 ML IV ONE ×2 (03:47→17:24)
[2018-05-14] MEDS: NS 1/2 1000 ML IV 1,000 ML IV SCH ×3 (04:06→18:13)
[2018-05-14] MEDS: PERCOCET TAB 5/325 MG PO PRN ×4 (04:32→23:10)
[2018-05-14] MEDS: ROBITUSSIN CF SYRUP PO PRN ×2 (04:43→15:50)
[2018-05-14] MEDS: ZOSYN VIAL 4.5 GRAMS 4.5 G in NS 100 ML IV + SPIKE MINIBAG* 100 ML IV SCH ×3 (05:51→21:00)
[2018-05-14] MEDS: NEURONTIN CAP 400 MG PO SCH ×3 (05:52→21:00)
[2018-05-14] MEDS: SOLU-Medrol 40 MG VIAL IVP SCH ×3 (05:52→21:00)
[2018-05-14] MEDS: SYNTHROID 112 mcg TAB PO SCH (06:11)
[2018-05-14 06:28] LABS: ALBUMIN 3.2 g/dL (3.4-5.0); CALCIUM 8.7 mg/dL (8.5-10.1); CARBON DIOXIDE 24.8 mmol/L (21-32); COR CA(FOR HYPOALB) 9.3 mg/dL (8.5-10.1); CREATININE 1.37 mg/dL (0.55-1.02); TOTAL PROTEIN 6.9 g/dL (6.4-8.2)
[2018-05-14 06:29] LABS: BASOPHILS % (AUTO) 0.2 % (0.2-1.0); HEMATOCRIT 26.5 % (36.0-47.0); HEMOGLOBIN 8.7 g/dL (12.0-16.0); LYMPHOCYTES # (AUTO) 0.7 X10^3/uL (1.3-2.9); LYMPHOCYTES % (AUTO) 7.3 % (21.0-51.0); MEAN CORPUSCULAR HEMOGLOBIN 28.8 pg (27.0-34.0); MEAN CORPUSCULAR HGB CONC 32.8 g/dL (33.0-35.0); MEAN CORPUSCULAR VOLUME 87.8 fL (80.0-100.0); MEAN PLATELET VOLUME 8.5 fL (7.4-11.0); MONOCYTES # (AUTO) 0.2 x10^3/uL (0.3-0.8); MONOCYTES % (AUTO) 1.7 % (0.0-13.0); NEUTROPHILS # (AUTO) 8.3 x10^3/uL (2.2-4.8); NEUTROPHILS % (AUTO) 90.8 % (42.0-75.0); PLATELET COUNT 430 X10^3/uL (150.0-450.0); RED BLOOD COUNT 3.01 X10^6/uL (3.5-5.4); RED CELL DISTRIBUTION WIDTH 14.6 % (11.6-16.5); WHITE BLOOD COUNT 9.1 X10^3/uL (3.6-10.0)
[2018-05-14 06:40] LABS: BAND NEUTROPHILS % 1 % (0-10); PLATELET MORPHOLOGY COMMENT NORMAL (NORMAL)
--- NOTE | 2018-05-14 06:42 | RAD ---
Examination: Portable AP chest History: SOB Comparison 05/13/2018 Findings: Continued normal heart size with clear lungs and pleural spaces. Impression: No change; no acute findings. Reported By:
[2018-05-14] MEDS: HYDROCHLOROTHIAZIDE 25 MG TAB PO SCH ×2 (07:48→08:50)
[2018-05-14] MEDS: FLONASE NASAL SPRAY ENOSTRIL SCH ×2 (07:48→08:50)
[2018-05-14] MEDS: PLAVIX PO SCH ×2 (07:49→08:50)
[2018-05-14] MEDS: NexIUM PO SCH ×3 (07:50→20:57)
[2018-05-14] MEDS: ROBITUSSIN DM PO SCH ×5 (07:50→20:57)
[2018-05-14] MEDS: TUSSIONEX PENNKINETIC SUSP PO PRN (07:50)
[2018-05-14] MEDS: ASPIRIN EC 81 MG PO SCH ×2 (07:50→08:49)
[2018-05-14] MEDS: PULMICORT NEB TX 0.5 MG NEB SCH ×2 (08:20→20:25)
[2018-05-14] MEDS: XOPENEX 1.25 MG/3 ML NEBULE NEB SCH ×4 (08:20→20:25)
[2018-05-14] MEDS ORDERED: NS 100 ML IV 100 ML with VENOFER 200 MG IV NR ×2 (12:00)
[2018-05-14] MEDS ORDERED: NS 100 ML IV 100 ML IV ONE (13:27)
[2018-05-14] MEDS: TESSALON PERLES PO SCH ×2 (13:41→21:00)
[2018-05-14] MEDS: CHLORASEPTIC SPRAY MT PRN (13:50)
[2018-05-14] MEDS: BROVANA IN SCH (20:25)
[2018-05-14] MEDS: LIPITOR TAB 40 MG PO SCH (20:56)
[2018-05-14] MEDS: SINGULAIR TAB 10 MG PO SCH (20:57)
[2018-05-14] MEDS: TRICOR TAB 145 MG PO SCH (20:57)
[2018-05-14] MEDS: ZOLOFT PO SCH (20:58)
[2018-05-14] MEDS: XANAX PO PRN (21:15)
[2018-05-15] MEDS: ROBITUSSIN CF SYRUP PO PRN ×2 (01:07→07:34)
[2018-05-15] MEDS ORDERED: NS 1/2 1000 ML IV 1,000 ML IV ONE ×2 (04:28→17:26)
[2018-05-15] MEDS: NS 1/2 1000 ML IV 1,000 ML IV SCH ×2 (04:45→18:11)
[2018-05-15] MEDS: PERCOCET TAB 5/325 MG PO PRN ×3 (05:18→19:56)
[2018-05-15] MEDS: NEURONTIN CAP 400 MG PO SCH ×3 (05:19→21:00)
[2018-05-15] MEDS: SOLU-Medrol 40 MG VIAL IVP SCH ×3 (05:19→21:00)
[2018-05-15] MEDS: ZOSYN VIAL 4.5 GRAMS 4.5 G in NS 100 ML IV + SPIKE MINIBAG* 100 ML IV SCH ×3 (05:19→21:00)
[2018-05-15] MEDS: TESSALON PERLES PO SCH ×3 (05:19→21:00)
[2018-05-15 05:26] LABS: BASOPHILS % (AUTO) 0.1 % (0.2-1.0); HEMATOCRIT 23.5 % (36.0-47.0); HEMOGLOBIN 7.8 g/dL (12.0-16.0); LYMPHOCYTES # (AUTO) 0.9 X10^3/uL (1.3-2.9); LYMPHOCYTES % (AUTO) 5.5 % (21.0-51.0); MEAN CORPUSCULAR HEMOGLOBIN 28.9 pg (27.0-34.0); MEAN CORPUSCULAR HGB CONC 33.1 g/dL (33.0-35.0); MEAN CORPUSCULAR VOLUME 87.3 fL (80.0-100.0); MEAN PLATELET VOLUME 8.6 fL (7.4-11.0); MONOCYTES # (AUTO) 0.7 x10^3/uL (0.3-0.8); MONOCYTES % (AUTO) 4.1 % (0.0-13.0); NEUTROPHILS % (AUTO) 90.3 % (42.0-75.0); PLATELET COUNT 412 X10^3/uL (150.0-450.0); RED BLOOD COUNT 2.69 X10^6/uL (3.5-5.4); RED CELL DISTRIBUTION WIDTH 15.1 % (11.6-16.5); WHITE BLOOD COUNT 16.6 X10^3/uL (3.6-10.0)
[2018-05-15 05:43] LABS: ALBUMIN 3.1 g/dL (3.4-5.0); CALCIUM 7.9 mg/dL (8.5-10.1); CARBON DIOXIDE 25.9 mmol/L (21-32); COR CA(FOR HYPOALB) 8.6 mg/dL (8.5-10.1); CREATININE 1.31 mg/dL (0.55-1.02); TOTAL PROTEIN 6.5 g/dL (6.4-8.2)
[2018-05-15 06:05] LABS: PLATELET MORPHOLOGY COMMENT NORMAL (NORMAL)
[2018-05-15 06:06] LABS: HYPOCHROMASIA SLIGHT; TARGET CELLS PRESENT
[2018-05-15] MEDS: SYNTHROID 112 mcg TAB PO SCH (06:07)
--- NOTE | 2018-05-15 07:03 | RAD ---
History: Shortness of breath Study: AP chest Comparison: Yesterday Findings: The lungs are clear and the heart and mediastinum are unremarkable and unchanged. There is no edema or effusion. Impression: No acute cardiopulmonary disease Reported By:
[2018-05-15] MEDS: BROVANA IN SCH ×2 (08:42→20:31)
[2018-05-15] MEDS: XOPENEX 1.25 MG/3 ML NEBULE NEB SCH ×4 (08:42→20:31)
[2018-05-15] MEDS: PULMICORT NEB TX 0.5 MG NEB SCH ×2 (08:42→20:31)
[2018-05-15] MEDS: ROBITUSSIN DM PO SCH ×4 (08:48→21:00)
[2018-05-15] MEDS: HYDROCHLOROTHIAZIDE 25 MG TAB PO SCH (08:48)
[2018-05-15] MEDS: ASPIRIN EC 81 MG PO SCH (08:48)
[2018-05-15] MEDS: NexIUM PO SCH ×2 (08:48→20:57)
[2018-05-15] MEDS: SOMA TAB 350 MG PO PRN ×2 (08:49→16:35)
[2018-05-15] MEDS: PLAVIX PO SCH (08:51)
--- NOTE | 2018-05-15 09:40 | PCM.PROG ---
Progress Note - Progress Note for Day of Date of Exam: 05/14/18 - Subjective Subjective: 62 WF DIRECT ADMIT ON 05/12 WITH COPD WITH ACUTE AB, FAILED OUTPT TREATMENT. PT CURRENTLY ON IV ATBX, RESP THERAPY. PT CO CHEST WALL SORENESS "FROM COUGHING" PT HAS LOWER EXP WHEEZES AND HOARSE BARKING COUGH, MINIMAL SPUTUM PRODUCTION. CO SORE THROAT THIS AM AND CONTINUES SEVERE COUGHING SPELLS. PT CURRENTLY ON JET NEBS AND BUDESONISE, ROBITUSSIN AND TUSSIONEX. WILL ADD LANE RENDON ON IV STEROIDS. ENCOURAGED INCREASED PO HYDRATION. PT HAD ANEMIA PANEL HGB 8.7, IRON LEVEL 22. PLAN IV IRON INFUSION TODAY, REPEAT AM LABS, CONTINUE RESP THERAPY - Past Medical Family Social History Past Med/Fam/Surg Hx: No changes since H&P Allergies: Allergies No Known Drug Allergies Allergy (Verified 01/18/18 10:24) - Review of Systems ROS: No change since H&P - Vital Signs and I&O's Vital Signs: Temperature 98.6 F Pulse Rate [Right Brachial] 79 Pulse Rate [Left Brachial] 83 Pulse Rate 83 Respiratory Rate 20 Blood Pressure [Right Arm] 111/55 Blood Pressure [Left Arm] 137/62 Blood Pressure 142/62 O2 Sat by Pulse Oximetry 94 Intake and Output: Intake & Output 05/12/18 05/13/18 05/14/18 05/15/18 11:59 11:59 11:59 11:59 Intake Total 1636 / 1636 3857 / 3857 3858 / 3858 Balance 1636 / 1636 3857 / 3857 3858 / 3858 - Physical Exam Oriented: Normal Eyes: Normal Ear: Normal Nose: Normal Throat: Dry Respiratory: Wheezes Cardiovascular: Normal : Normal Auscultation: Bowel Sounds: Normal Tenderness: Normal Skin: Normal Musculoskeletal: Normal Psychiatric: Anxiety Affect: Anxious Speech Pattern: Clear, Appropriate - Laboratory and Diagnostics Result Diagrams: 05/15/18 04:17 05/15/18 04:17 Labs: 05/12/18 10:02 Blood Blood Culture - Preliminary 05/12/18 09:55 Blood Blood Culture - Preliminary Laboratory WBC 16.6 X10^3/uL (3.6-10.0) H 05/15/18 04:17 RBC 2.69 X10^6/uL (3.5-5.4) L 05/15/18 04:17 Hgb 7.8 g/dL (12.0-16.0) L 05/15/18 04:17 Hct 23.5 % (36.0-47.0) L 05/15/18 04:17 MCV 87.3 fL (80.0-100.0) 05/15/18 04:17 MCH 28.9 pg (27.0-34.0) 05/15/18 04:17 MCHC 33.1 g/dL (33.0-35.0) 05/15/18 04:17 RDW 15.1 % (11.6-16.5) 05/15/18 04:17 Plt Count 412 X10^3/uL (150.0-450.0) 05/15/18 04:17 Plt Count Comment Adequate (ADEQUATE) 05/15/18 04:17 MPV 8.6 fL (7.4-11.0) 05/15/18 04:17 Neut % (Auto) 90.3 % (42.0-75.0) H 05/15/18 04:17 Lymph % (Auto) 5.5 % (21.0-51.0) L 05/15/18 04:17 [place] % (Auto) 4.1 % (0.0-13.0) 05/15/18 04:17 Eos % (Auto) 0.0 % (0.9-2.9) L 05/15/18 04:17 Baso % (Auto) 0.1 % (0.2-1.0) L 05/15/18 04:17 Neut # (Auto) 15.0 x10^3/uL (2.2-4.8) H 05/15/18 04:17 Lymph # (Auto) 0.9 X10^3/uL (1.3-2.9) L 05/15/18 04:17 [place] # (Auto) 0.7 x10^3/uL (0.3-0.8) 05/15/18 04:17 Eos # (Auto) 0.0 x10^3/uL (0.0-0.2) 05/15/18 04:17 Baso # (Auto) 0.0 X10^3/uL (0.0-0.1) 05/15/18 04:17 Absolute Nucleated RBC 0.0 /100WBC 05/15/18 04:17 Total Counted 100 05/15/18 04:17 Neutrophils % (Manual) 91 % (39-76) H 05/15/18 04:17 Band Neutrophils % 1 % (0-10) 05/14/18 04:30 Lymphocytes % (Manual) 6 % (13-43) L 05/15/18 04:17 Monocytes % (Manual) 3 % (4-9) L 05/15/18 04:17 Plt Morphology Comment Normal (NORMAL) 05/15/18 04:17 RBC Morphology Abnormal (NORMAL) A 05/15/18 04:17 Hypochromasia Slight A 05/15/18 04:17 Target Cells Present 05/15/18 04:17 Sodium 142 mmol/L (136-145) 05/15/18 04:17 Corrected Sodium 143 mmol/L (136-145) 05/15/18 04:17 Potassium 4.1 mmol/L (3.5-5.1) 05/15/18 04:17 Chloride 106 mmol/L (98-107) 05/15/18 04:17 Carbon Dioxide 25.9 mmol/L (21-32) 05/15/18 04:17 BUN 22 mg/dL (7-18) H 05/15/18 04:17 Creatinine 1.31 mg/dL (0.55-1.02) H 05/15/18 04:17 Est GFR (MDRD) Af Amer 53 (>60) L 05/15/18 04:17 Est GFR (MDRD) Non-Af 44 (>60) L 05/15/18 04:17 Glucose 134 mg/dL (65-99) H 05/15/18 04:17 Calcium 7.9 mg/dL (8.5-10.1) L 05/15/18 04:17 Corrected Calcium 8.6 mg/dL (8.5-10.1) 05/15/18 04:17 Iron 22 ug/dL (50-175) L 05/13/18 05:20 Transferrin 468 mg/dL (202-364) H 05/13/18 05:20 Ferritin 12 ng/mL (8-252) 05/13/18 05:20 Total Bilirubin 0.10 mg/dL (0.2-1.0) L 05/15/18 04:17 AST 17 Units/L (15-37) 05/15/18 04:17 ALT 21 Units/L (12-78) 05/15/18 04:17 Alkaline Phosphatase 35 Units/L (46-116) L 05/15/18 04:17 Total Protein 6.5 g/dL (6.4-8.2) 05/15/18 04:17 Albumin 3.1 g/dL (3.4-5.0) L 05/15/18 04:17 Globulin 3.4 g/dL (2.5-4.5) 05/15/18 04:17 Albumin/Globulin Ratio 0.9 Ratio (1.1-2.1) L 05/15/18 04:17 Vitamin B12 480 pg/mL (193-986) 05/13/18 05:20 Folate 5.5 ng/mL (>8.6) L 05/13/18 05:20 Influenza Type A (PCR) Negative (NEGATIVE) 05/12/18 11:00 Influenza Type B (PCR) Negative (NEGATIVE) 05/12/18 11:00 - Plan (1) Bronchopneumonia Status: Acute Plan: BLOOD AND SPUTUM CUTLURES PER PNEUMONIA PROTOCOL. IV ATBX, RESP THERAPY. PULMONARY TOILETING, BP MONITORING. SUPPLEMENTAL O2. FLONASE AND ROBITUSSIN, REPEAT AM LABS (2) Essential hypertension Status: Chronic (3) Generalized anxiety disorder Status: Chronic (4) Gastroesophageal reflux disease Status: Chronic (5) Iron deficiency anemia Status: Acute Plan: ANEMIA PANEL, IV IRON INFUSION. AM CBC
[2018-05-15] MEDS: XANAX PO PRN (09:59)
[2018-05-15] MEDS: FLONASE NASAL SPRAY ENOSTRIL SCH (10:00)
[2018-05-15] MEDS: TUSSIONEX PENNKINETIC SUSP PO SCH ×2 (10:00→21:00)
--- NOTE | 2018-05-15 10:24 | PCM.PROG ---
Progress Note - Progress Note for Day of Date of Exam: 05/15/18 - Subjective Subjective: WAS ADMITTED FOR BRONCHOPNEUMONIA, FAILED OUTPATIENT TREATMENT. TODAY, SHE IS ALERT AND ORIENTED, SITTING UP IN BED ON MORNING ROUNDS. SHE CONTINUES WITH COMPLAINTS OF SHORTNESS OF BREATH AND A PERSISTENT, NON-PRODUCTIVE COUGH. ON EXAMINATION, HEART IS REGULAR IN RATE AND RHYTHM. B ILATERAL LUNGS ARE NOTED WITH SCATTERED WHEEZING AND RHONCHI. HER VITALS THIS MORNING ARE 98.6-79-20-94%RA-111/55. LABS WERE OBTAINED. ABNORMAL LAB VALUES INCLUDE THE FOLLOWING: WBC 16.6, RBC 2.69, HGB 7.8, HCT 23.5, BUN 22, CREATININE 1.31, GLUCOSE 134, CALCIUM 7.9, TOTAL BILIRUBIN 0.10, ALK PHOS 35, ALBUMIN 3.1. TODAYS CHEST XRAY IS STABLE. SHE IS CURRENTLY RECEIVING RESPIRATORY TREATMENTS, SOLU-MEDROL 40MG IV Q8H, ZOSYN 4.5GM IV TID, TUSSIONEX, AND TESSALON PERLES. WE WILL CONTINUE WITH CURRENT PLAN OF CARE TODAY. OTHERWISE, WE PLAN TO FOLLOW UP WITH AM LABS AND CHEST XRAY AND CONTINUE TO MONITOR PATIENT. - Past Medical Family Social History Past Med/Fam/Surg Hx: No changes since H&P Allergies: Allergies No Known Drug Allergies Allergy (Verified 01/18/18 10:24) - Review of Systems ROS: No change since H&P - Vital Signs and I&O's Vital Signs: Temperature 98.6 F Pulse Rate [Right Brachial] 79 Pulse Rate [Left Brachial] 83 Pulse Rate 83 Respiratory Rate 20 Blood Pressure [Right Arm] 111/55 Blood Pressure [Left Arm] 137/62 Blood Pressure 142/62 O2 Sat by Pulse Oximetry 94 Intake and Output: Intake & Output 05/12/18 05/13/18 05/14/18 05/15/18 11:59 11:59 11:59 11:59 Intake Total 1636 / 1636 3857 / 3857 3858 / 3858 Balance 1636 / 1636 3857 / 3857 3858 / 3858 - Physical Exam Oriented: Normal Eyes: Normal Ear: Normal Nose: Normal Throat: Dry Respiratory: Generalized, Wheezes, Rhonchi Cardiovascular: Normal. negative: S3, S4, Murmur : Normal Auscultation: Bowel Sounds: Normal Palpation: Normal Tenderness: Normal Skin: Normal Musculoskeletal: Normal Psychiatric: Anxiety Affect: Anxious Speech Pattern: Clear, Appropriate - Laboratory and Diagnostics Result Diagrams: 05/15/18 04:17 05/15/18 04:17 Labs: 05/12/18 10:02 Blood Blood Culture - Preliminary 05/12/18 09:55 Blood Blood Culture - Preliminary Laboratory WBC 16.6 X10^3/uL (3.6-10.0) H 05/15/18 04:17 RBC 2.69 X10^6/uL (3.5-5.4) L 05/15/18 04:17 Hgb 7.8 g/dL (12.0-16.0) L 05/15/18 04:17 Hct 23.5 % (36.0-47.0) L 05/15/18 04:17 MCV 87.3 fL (80.0-100.0) 05/15/18 04:17 MCH 28.9 pg (27.0-34.0) 05/15/18 04:17 MCHC 33.1 g/dL (33.0-35.0) 05/15/18 04:17 RDW 15.1 % (11.6-16.5) 05/15/18 04:17 Plt Count 412 X10^3/uL (150.0-450.0) 05/15/18 04:17 Plt Count Comment Adequate (ADEQUATE) 05/15/18 04:17 MPV 8.6 fL (7.4-11.0) 05/15/18 04:17 Neut % (Auto) 90.3 % (42.0-75.0) H 05/15/18 04:17 Lymph % (Auto) 5.5 % (21.0-51.0) L 05/15/18 04:17 [place] % (Auto) 4.1 % (0.0-13.0) 05/15/18 04:17 Eos % (Auto) 0.0 % (0.9-2.9) L 05/15/18 04:17 Baso % (Auto) 0.1 % (0.2-1.0) L 05/15/18 04:17 Neut # (Auto) 15.0 x10^3/uL (2.2-4.8) H 05/15/18 04:17 Lymph # (Auto) 0.9 X10^3/uL (1.3-2.9) L 05/15/18 04:17 [place] # (Auto) 0.7 x10^3/uL (0.3-0.8) 05/15/18 04:17 Eos # (Auto) 0.0 x10^3/uL (0.0-0.2) 05/15/18 04:17 Baso # (Auto) 0.0 X10^3/uL (0.0-0.1) 05/15/18 04:17 Absolute Nucleated RBC 0.0 /100WBC 05/15/18 04:17 Total Counted 100 05/15/18 04:17 Neutrophils % (Manual) 91 % (39-76) H 05/15/18 04:17 Band Neutrophils % 1 % (0-10) 05/14/18 04:30 Lymphocytes % (Manual) 6 % (13-43) L 05/15/18 04:17 Monocytes % (Manual) 3 % (4-9) L 05/15/18 04:17 Plt Morphology Comment Normal (NORMAL) 05/15/18 04:17 RBC Morphology Abnormal (NORMAL) A 05/15/18 04:17 Hypochromasia Slight A 05/15/18 04:17 Target Cells Present 05/15/18 04:17 Sodium 142 mmol/L (136-145) 05/15/18 04:17 Corrected Sodium 143 mmol/L (136-145) 05/15/18 04:17 Potassium 4.1 mmol/L (3.5-5.1) 05/15/18 04:17 Chloride 106 mmol/L (98-107) 05/15/18 04:17 Carbon Dioxide 25.9 mmol/L (21-32) 05/15/18 04:17 BUN 22 mg/dL (7-18) H 05/15/18 04:17 Creatinine 1.31 mg/dL (0.55-1.02) H 05/15/18 04:17 Est GFR (MDRD) Af Amer 53 (>60) L 05/15/18 04:17 Est GFR (MDRD) Non-Af 44 (>60) L 05/15/18 04:17 Glucose 134 mg/dL (65-99) H 05/15/18 04:17 Calcium 7.9 mg/dL (8.5-10.1) L 05/15/18 04:17 Corrected Calcium 8.6 mg/dL (8.5-10.1) 05/15/18 04:17 Iron 22 ug/dL (50-175) L 05/13/18 05:20 Transferrin 468 mg/dL (202-364) H 05/13/18 05:20 Ferritin 12 ng/mL (8-252) 05/13/18 05:20 Total Bilirubin 0.10 mg/dL (0.2-1.0) L 05/15/18 04:17 AST 17 Units/L (15-37) 05/15/18 04:17 ALT 21 Units/L (12-78) 05/15/18 04:17 Alkaline Phosphatase 35 Units/L (46-116) L 05/15/18 04:17 Total Protein 6.5 g/dL (6.4-8.2) 05/15/18 04:17 Albumin 3.1 g/dL (3.4-5.0) L 05/15/18 04:17 Globulin 3.4 g/dL (2.5-4.5) 05/15/18 04:17 Albumin/Globulin Ratio 0.9 Ratio (1.1-2.1) L 05/15/18 04:17 Vitamin B12 480 pg/mL (193-986) 05/13/18 05:20 Folate 5.5 ng/mL (>8.6) L 05/13/18 05:20 Influenza Type A (PCR) Negative (NEGATIVE) 05/12/18 11:00 Influenza Type B (PCR) Negative (NEGATIVE) 05/12/18 11:00 - Plan (1) Bronchopneumonia Status: Acute Plan: PNEUMONIA PROTOCOL, IV ATBX, RESP THERAPY, TESSALON PERLES, TUSSIONEX Q12H BIANCA, SOLU-MEDROL, CONTINUE TO MONITOR LABS AND CHEST XRAY
[2018-05-15] MEDS: SINGULAIR TAB 10 MG PO SCH (20:58)
[2018-05-15] MEDS: TRICOR TAB 145 MG PO SCH (20:58)
[2018-05-15] MEDS: AMBIEN PO PRN (20:59)
[2018-05-15] MEDS: LIPITOR TAB 40 MG PO SCH (20:59)
[2018-05-15] MEDS: ZOLOFT PO SCH (20:59)
[2018-05-16] MEDS: PERCOCET TAB 5/325 MG PO PRN ×4 (03:05→21:10)
[2018-05-16] MEDS: ROBITUSSIN CF SYRUP PO PRN (03:05)
[2018-05-16 05:04] LABS: BASOPHILS % (AUTO) 0.2 % (0.2-1.0); HEMATOCRIT 22.7 % (36.0-47.0); HEMOGLOBIN 7.5 g/dL (12.0-16.0); LYMPHOCYTES # (AUTO) 1.3 X10^3/uL (1.3-2.9); LYMPHOCYTES % (AUTO) 7.3 % (21.0-51.0); MEAN CORPUSCULAR HEMOGLOBIN 28.6 pg (27.0-34.0); MEAN CORPUSCULAR HGB CONC 32.9 g/dL (33.0-35.0); MEAN CORPUSCULAR VOLUME 86.9 fL (80.0-100.0); MEAN PLATELET VOLUME 8.4 fL (7.4-11.0); MONOCYTES # (AUTO) 0.9 x10^3/uL (0.3-0.8); MONOCYTES % (AUTO) 5.2 % (0.0-13.0); NEUTROPHILS % (AUTO) 87.3 % (42.0-75.0); PLATELET COUNT 417 X10^3/uL (150.0-450.0); RED BLOOD COUNT 2.62 X10^6/uL (3.5-5.4); RED CELL DISTRIBUTION WIDTH 14.7 % (11.6-16.5); WHITE BLOOD COUNT 17.2 X10^3/uL (3.6-10.0)
[2018-05-16 05:13] LABS: ALBUMIN 3.1 g/dL (3.4-5.0); CARBON DIOXIDE 27.7 mmol/L (21-32); COR CA(FOR HYPOALB) 8.7 mg/dL (8.5-10.1); CREATININE 1.27 mg/dL (0.55-1.02); TOTAL PROTEIN 6.5 g/dL (6.4-8.2)
[2018-05-16] MEDS ORDERED: NS 1/2 1000 ML IV 1,000 ML IV ONE ×2 (05:31→20:26)
[2018-05-16] MEDS: TESSALON PERLES PO SCH ×3 (05:45→21:11)
[2018-05-16] MEDS: NEURONTIN CAP 400 MG PO SCH ×3 (05:46→21:09)
[2018-05-16] MEDS: NS 1/2 1000 ML IV 1,000 ML IV SCH ×3 (05:46→21:12)
[2018-05-16] MEDS: SOLU-Medrol 40 MG VIAL IVP SCH ×2 (05:46→14:10)
[2018-05-16] MEDS: ZOSYN VIAL 4.5 GRAMS 4.5 G in NS 100 ML IV + SPIKE MINIBAG* 100 ML IV SCH ×3 (05:46→21:11)
[2018-05-16 06:06] LABS: ANISOCYTOSIS 1+; HYPOCHROMASIA 1+; PLATELET MORPHOLOGY COMMENT NORMAL (NORMAL); TARGET CELLS PRESENT
[2018-05-16] MEDS: SYNTHROID 112 mcg TAB PO SCH (06:06)
--- NOTE | 2018-05-16 07:10 | RAD ---
History: Shortness of breath Study: AP chest Comparison: Yesterday Findings: There is no interval change. The lungs remain clear and the heart and mediastinum are unrem arkable. No edema or effusion or congestion is suggested. impression: No evidence for acute cardiopulmonary disease Reported By:
[2018-05-16] MEDS: BROVANA IN SCH ×2 (08:48→21:19)
[2018-05-16] MEDS: PULMICORT NEB TX 0.5 MG NEB SCH ×2 (08:48→21:19)
[2018-05-16] MEDS: XOPENEX 1.25 MG/3 ML NEBULE NEB SCH ×4 (08:48→21:18)
[2018-05-16] MEDS: ASPIRIN EC 81 MG PO SCH (08:49)
[2018-05-16] MEDS: NexIUM PO SCH ×2 (08:49→21:10)
[2018-05-16] MEDS: HYDROCHLOROTHIAZIDE 25 MG TAB PO SCH (08:49)
[2018-05-16] MEDS: FLONASE NASAL SPRAY ENOSTRIL SCH (08:49)
[2018-05-16] MEDS: PLAVIX PO SCH (08:50)
[2018-05-16] MEDS: ROBITUSSIN DM PO SCH ×4 (08:50→21:09)
[2018-05-16] MEDS: TUSSIONEX PENNKINETIC SUSP PO SCH ×2 (09:00→21:09)
[2018-05-16] MEDS: HEMOCYTE-PLUS PO SCH (10:40)
[2018-05-16] MEDS: FOLIC ACID TAB 1 MG PO SCH (10:40)
[2018-05-16] MEDS: SOMA TAB 350 MG PO PRN (10:45)
[2018-05-16 17:10] LABS: HEMATOCRIT 23.8 % (36.0-47.0); HEMOGLOBIN 7.8 g/dL (12.0-16.0)
--- NOTE | 2018-05-16 18:04 | PCM.PROG ---
Progress Note - Progress Note for Day of Date of Exam: 05/16/18 - Subjective Subjective: WAS ADMITTED FOR BRONCHOPNEUMONIA, FAILED OUTPATIENT TREATMENT. TODAY, SHE IS ALERT AND ORIENTED, SITTING UP IN BED ON MORNING ROUNDS. SHE CONTINUES WITH COMPLAINTS OF SHORTNESS OF BREATH AND A PERSISTENT, NON-PRODUCTIVE COUGH, BUT REPORTS IMPROVEMENT SINCE YESTERDAY. ON EXAMINATION, HEART IS REGULAR IN RATE AND RHYTHM. BILATERAL LUNGS ARE NOTED WITH SCATTERED WHEEZING AND RHONCHI. HER VITALS THIS MORNING ARE 98.2-59-20-95%RA-148/67. LABS WERE OBTAINED. ABNORMAL LAB VALUES INCLUDE THE FOLLOWING: WBC INCREASED TO 17.2, RBC 2.62, HGB 7.5, HCT 22.7, BUN 24, CREATININE 1.27, GLUCOSE 147, CALCIUM 8.0, TOTAL BILI 0.10, ALK PHOS 37, ALBUMIN 3.1. TODAYS CHEST XRAY REMAINS STABLE. THERE HAS BEEN A PERSISTENT DECLINE IN PATIENTS HEMOGLOBIN SINCE ADMISSION. TODAY, WE WILL OBTAIN STOOLS FOR OCCULT BLOOD. SHE IS CURRENTLY RECEIVING RESPIRATORY TREATMENTS, SOLU-MEDROL 40MG IV Q8H, ZOSYN 4.5GM IV TID, TUSSIONEX, AND TESSALON PERLES. WE WILL CONTINUE WITH CURRENT PLAN OF CARE TODAY AND START HEMOCYTE 106MG PO DAILY AND FOLIC ACID 2MG PO DAILY. WE WILL RECHECK HER HEMOGLOBIN AT 1700. IF HEMOGLOBIN FALLS BELOW 7.0, WE WILL TRANSFUSE PACKED RED BLOOD CELLS. OTHERWISE, WE PLAN TO FOLLOW UP WITH AM LABS AND CHEST XRAY AND CONTINUE TO MONITOR PATIENT. - Past Medical Family Social History Past Med/Fam/Surg Hx: No changes since H&P Allergies: Allergies No Known Drug Allergies Allergy (Verified 01/18/18 10:24) - Review of Systems ROS: No change since H&P - Vital Signs and I&O's Vital Signs: Temperature 97.9 F Pulse Rate [Right Brachial] 65 Pulse Rate [Left Brachial] 83 Pulse Rate 62 Respiratory Rate 20 Blood Pressure [Right Arm] 177/69 Blood Pressure [Left Arm] 137/62 Blood Pressure 142/62 O2 Sat by Pulse Oximetry 97 Intake and Output: Intake & Output 05/14/18 05/15/18 05/16/18 05/17/18 11:59 11:59 11:59 11:59 Intake Total 3857 / 3857 3858 / 3858 1979 Balance 385 / 3857 3858 / 3858 1979 - Physical Exam Oriented: Normal Eyes: Normal Ear: Normal Nose: Normal Throat: Dry Respiratory: Generalized, Wheezes, Rhonchi Cardiovascular: Normal. negative: S3, S4, Murmur : Normal Auscultation: Bowel Sounds: Normal Palpation: Normal Tenderness: Normal Skin: Normal Musculoskeletal: Normal Psychiatric: Anxiety Affect: Anxious Speech Pattern: Clear, Appropriate - Laboratory and Diagnostics Result Diagrams: 05/16/18 17:02 05/16/18 04:40 Labs: 05/12/18 10:02 Blood Blood Culture - Preliminary 05/12/18 09:55 Blood Blood Culture - Preliminary Laboratory WBC 17.2 X10^3/uL (3.6-10.0) H 05/16/18 04:40 RBC 2.62 X10^6/uL (3.5-5.4) L 05/16/18 04:40 Hgb 7.8 g/dL (12.0-16.0) L 05/16/18 17:02 Hct 23.8 % (36.0-47.0) L 05/16/18 17:02 MCV 86.9 fL (80.0-100.0) 05/16/18 04:40 MCH 28.6 pg (27.0-34.0) 05/16/18 04:40 MCHC 32.9 g/dL (33.0-35.0) L 05/16/18 04:40 RDW 14.7 % (11.6-16.5) 05/16/18 04:40 Plt Count 417 X10^3/uL (150.0-450.0) 05/16/18 04:40 Plt Count Comment Adequate (ADEQUATE) 05/16/18 04:40 MPV 8.4 fL (7.4-11.0) 05/16/18 04:40 Neut % (Auto) 87.3 % (42.0-75.0) H 05/16/18 04:40 Lymph % (Auto) 7.3 % (21.0-51.0) L 05/16/18 04:40 [place] % (Auto) 5.2 % (0.0-13.0) 05/16/18 04:40 Eos % (Auto) 0.0 % (0.9-2.9) L 05/16/18 04:40 Baso % (Auto) 0.2 % (0.2-1.0) 05/16/18 04:40 Neut # (Auto) 15.0 x10^3/uL (2.2-4.8) H 05/16/18 04:40 Lymph # (Auto) 1.3 X10^3/uL (1.3-2.9) 05/16/18 04:40 [place] # (Auto) 0.9 x10^3/uL (0.3-0.8) H 05/16/18 04:40 Eos # (Auto) 0.0 x10^3/uL (0.0-0.2) 05/16/18 04:40 Baso # (Auto) 0.0 X10^3/uL (0.0-0.1) 05/16/18 04:40 Absolute Nucleated RBC 0.3 /100WBC 05/16/18 04:40 Total Counted 100 05/15/18 04:17 Neutrophils % (Manual) 91 % (39-76) H 05/15/18 04:17 Band Neutrophils % 1 % (0-10) 05/14/18 04:30 Lymphocytes % (Manual) 6 % (13-43) L 05/15/18 04:17 Monocytes % (Manual) 3 % (4-9) L 05/15/18 04:17 Plt Morphology Comment Normal (NORMAL) 05/16/18 04:40 RBC Morphology Abnormal (NORMAL) A 05/16/18 04:40 Hypochromasia 1+ A 05/16/18 04:40 Anisocytosis 1+ A 05/16/18 04:40 Target Cells Present 05/16/18 04:40 Sodium 142 mmol/L (136-145) 05/16/18 04:40 Corrected Sodium 143 mmol/L (136-145) 05/16/18 04:40 Potassium 3.8 mmol/L (3.5-5.1) 05/16/18 04:40 Chloride 106 mmol/L (98-107) 05/16/18 04:40 Carbon Dioxide 27.7 mmol/L (21-32) 05/16/18 04:40 BUN 24 mg/dL (7-18) H 05/16/18 04:40 Creatinine 1.27 mg/dL (0.55-1.02) H 05/16/18 04:40 Est GFR (MDRD) Af Amer 55 (>60) L 05/16/18 04:40 Est GFR (MDRD) Non-Af 46 (>60) L 05/16/18 04:40 Glucose 147 mg/dL (65-99) H 05/16/18 04:40 Calcium 8.0 mg/dL (8.5-10.1) L 05/16/18 04:40 Corrected Calcium 8.7 mg/dL (8.5-10.1) 05/16/18 04:40 Iron 22 ug/dL (50-175) L 05/13/18 05:20 Transferrin 468 mg/dL (202-364) H 05/13/18 05:20 Ferritin 12 ng/mL (8-252) 05/13/18 05:20 Total Bilirubin 0.10 mg/dL (0.2-1.0) L 05/16/18 04:40 AST 25 Units/L (15-37) 05/16/18 04:40 ALT 32 Units/L (12-78) 05/16/18 04:40 Alkaline Phosphatase 37 Units/L (46-116) L 05/16/18 04:40 Total Protein 6.5 g/dL (6.4-8.2) 05/16/18 04:40 Albumin 3.1 g/dL (3.4-5.0) L 05/16/18 04:40 Globulin 3.4 g/dL (2.5-4.5) 05/16/18 04:40 Albumin/Globulin Ratio 0.9 Ratio (1.1-2.1) L 05/16/18 04:40 Vitamin B12 480 pg/mL (193-986) 05/13/18 05:20 Folate 5.5 ng/mL (>8.6) L 05/13/18 05:20 Stool Description 20g unformed brown 05/16/18 16:08 Stl Occult Blood (IFOB) Positive (NEGATIVE) A 05/16/18 16:08 Influenza Type A (PCR) Negative (NEGATIVE) 05/12/18 11:00 Influenza Type B (PCR) Negative (NEGATIVE) 05/12/18 11:00 - Plan (1) Bronchopneumonia Status: Acute Plan: PNEUMONIA PROTOCOL, IV ATBX, RESP THERAPY, TESSALON PERLES, TUSSIONEX Q12H BIANCA, SOLU-MEDROL, CONTINUE TO MONITOR LABS AND CHEST XRAY (2) Iron deficiency anemia Status: Chronic Qualifiers: Iron deficiency anemia type: chronic blood loss Qualified Code(s): D50.0 - Iron deficiency anemia secondary to blood loss (chronic) Plan: OBTAIN STOOLS FOR OCCULT BLOOD, MONITOR H&H, START HEMOCYTE 106MG PO DAILY, FOLIC ACID 2MG PO DAILY, CONTINUE TO MONITOR (3) Chronic obstructive lung disease Status: Chronic Plan: CONTINUE INHALERS, CONTINUE NEB TX, CONTINUE TO MONITOR (4) Hyperlipidemia Status: Chronic Qualifiers: Hyperlipidemia type: mixed hyperlipidemia Qualified Code(s): E78.2 - Mixed hyperlipidemia Plan: CONTINUE HOME MEDS (5) Depressive disorder Status: Chronic Plan: CONTINUE HOME MEDS (6) Gastroesophageal reflux disease Status: Chronic Plan: CONTINUE HOME MEDS (7) Hypothyroidism Status: Chronic Plan: CONTINUE HOME MEDS
[2018-05-16] MEDS: AMBIEN PO PRN (21:09)
[2018-05-16] MEDS: SINGULAIR TAB 10 MG PO SCH (21:10)
[2018-05-16] MEDS: LIPITOR TAB 40 MG PO SCH (21:10)
[2018-05-16] MEDS: TRICOR TAB 145 MG PO SCH (21:11)
[2018-05-16] MEDS: ZOLOFT PO SCH (21:11)
[2018-05-17] MEDS: ROBITUSSIN CF SYRUP PO PRN ×2 (00:26→05:24)
[2018-05-17] MEDS: PERCOCET TAB 5/325 MG PO PRN ×2 (03:42→09:26)
[2018-05-17] MEDS: SOMA TAB 350 MG PO PRN (03:49)
[2018-05-17 05:14] LABS: BASOPHILS % (AUTO) 0 % (0.2-1.0); EOSINOPHILS % (AUTO) 0.2 % (0.9-2.9); HEMATOCRIT 22.7 % (36.0-47.0); HEMOGLOBIN 7.5 g/dL (12.0-16.0); LYMPHOCYTES # (AUTO) 2.3 X10^3/uL (1.3-2.9); MEAN CORPUSCULAR HEMOGLOBIN 28.8 pg (27.0-34.0); MEAN CORPUSCULAR HGB CONC 32.9 g/dL (33.0-35.0); MEAN CORPUSCULAR VOLUME 87.6 fL (80.0-100.0); MEAN PLATELET VOLUME 8.4 fL (7.4-11.0); MONOCYTES % (AUTO) 6.4 % (0.0-13.0); NEUTROPHILS # (AUTO) 11.8 x10^3/uL (2.2-4.8); NEUTROPHILS % (AUTO) 78.4 % (42.0-75.0); PLATELET COUNT 406 X10^3/uL (150.0-450.0); RED BLOOD COUNT 2.59 X10^6/uL (3.5-5.4)
[2018-05-17] MEDS: NEURONTIN CAP 400 MG PO SCH (05:23)
[2018-05-17] MEDS: TESSALON PERLES PO SCH (05:24)
[2018-05-17 05:25] LABS: ALBUMIN 3.1 g/dL (3.4-5.0); CALCIUM 7.8 mg/dL (8.5-10.1); CARBON DIOXIDE 27.9 mmol/L (21-32); COR CA(FOR HYPOALB) 8.5 mg/dL (8.5-10.1); CREATININE 1.38 mg/dL (0.55-1.02); TOTAL PROTEIN 6.2 g/dL (6.4-8.2)
[2018-05-17] MEDS: ZOSYN VIAL 4.5 GRAMS 4.5 G in NS 100 ML IV + SPIKE MINIBAG* 100 ML IV SCH (05:25)
[2018-05-17] MEDS ORDERED: K-RIDER 10 MEQ/NS 100 ML 10 MEQ/100 ML BAG IV PRN (05:48)
[2018-05-17] MEDS ORDERED: POTASSIUM CHL 60 MEQ/NS 0.45% 500 ML IV PRN (05:48)
[2018-05-17] MEDS ORDERED: K-DUR TAB 20 MEQ PO PRN (05:48)
[2018-05-17] MEDS ORDERED: POTASSIUM CHL 40 MEQ/NS 0.45% 500 ML IV PRN (05:48)
[2018-05-17] MEDS ORDERED: POTASSIUM CHLORIDE LIQ 20 MEQ UDC PO PRN (05:48)
[2018-05-17] MEDS ORDERED: KLOR-CON PO PRN (05:48)
[2018-05-17] MEDS ORDERED: MICRO K EXTEN CAP 10 MEQ PO PRN (05:48)
[2018-05-17] MEDS ORDERED: MAGNESIUM SULFATE 1 GRAM/100 mL PREMIX 1 GM/100 ML BAG IV PRN (05:51)
[2018-05-17] MEDS: SYNTHROID 112 mcg TAB PO SCH (06:11)
[2018-05-17 06:12] LABS: HYPOCHROMASIA 1+; PLATELET MORPHOLOGY COMMENT NORMAL (NORMAL)
[2018-05-17 06:13] LABS: ANISOCYTOSIS SLIGHT; TARGET CELLS PRESENT
--- NOTE | 2018-05-17 06:21 | RAD ---
History: Shortness of breath Study: AP chest Comparison: May 16 Reported By:
[2018-05-17] MEDS: NS 1/2 1000 ML IV 1,000 ML IV SCH (06:54)
[2018-05-17] MEDS: CHLORASEPTIC SPRAY MT PRN (07:32)
[2018-05-17] MEDS: PULMICORT NEB TX 0.5 MG NEB SCH (09:10)
[2018-05-17] MEDS: BROVANA IN SCH (09:10)
[2018-05-17] MEDS: XOPENEX 1.25 MG/3 ML NEBULE NEB SCH (09:10)
[2018-05-17] MEDS: HEMOCYTE-PLUS PO SCH (09:14)
[2018-05-17] MEDS: FLONASE NASAL SPRAY ENOSTRIL SCH (09:14)
[2018-05-17] MEDS: ASPIRIN EC 81 MG PO SCH (09:14)
[2018-05-17] MEDS: FOLIC ACID TAB 1 MG PO SCH (09:14)
[2018-05-17] MEDS: PLAVIX PO SCH (09:20)
[2018-05-17] MEDS: HYDROCHLOROTHIAZIDE 25 MG TAB PO SCH (09:20)
[2018-05-17] MEDS: NexIUM PO SCH (09:20)
[2018-05-17] MEDS: ROBITUSSIN DM PO SCH (09:20)
[2018-05-17] MEDS: TUSSIONEX PENNKINETIC SUSP PO SCH (09:20)
[2018-05-17 09:58] VITALS: BP 126/62
[2018-05-17] MEDS ORDERED: MAGIC MOUTHWASH MT SCH (10:00)
--- NOTE | 2018-07-02 20:10 | DR.UPDATE ---
H&P Update History and Physical Update: WAS SEEN IN THE OFFICE TODAY. A H&P WAS COMPLETED PRIOR TO ADMISSION. PATIENT HAS BEEN SEEN AND EXAMINED WITH NO CHANGES NOTED TO H&P. Changes noted: NO Yes with the following:
--- NOTE | 2018-07-04 21:54 | DR.CARTERD ---
- Discharge Summary for: Discharge Summary for Date of:: 05/17/18 - Admission Date Date of Admission: 05/12/18 - Admission Diagnoses Admission Diagnosis: (1) Bronchopneumonia (2) Essential hypertension (3) Generalized anxiety disorder (4) Gastroesophageal reflux disease - Discharge Date Discharge Date: 05/17/18 - Discharge Diagnoses Discharge Diagnosis: (1) Bronchopneumonia (2) Iron deficiency anemia (3) Chronic obstructive lung disease (4) Hyperlipidemia (5) Depressive disorder (6) Gastroesophageal reflux disease (7) Hypothyroidism - Hospital Course Hospital Course: DAY ONE, PATIENT IS A 62 YEAR OLD WHITE FEMALE WHO WAS DIRECT ADMITTED FROM OUR SERVICES ON 05/12 WITH COPD WITH ACUTE AB AND FAILED OUT-PT TREATMENT. PATIENT WAS STARTED ON IV ANTIBIOTIC THERAPY, IV FLUIDS, AND RESPIRATORY TREATMENTS. PATIENT WAS NOTED TO HAVE SHORTNESS OF BREATH WITH EXERTIONS AND A NON- PRODUCTIVE INTERMITTEN COUGH. WE CONTINUED TO MONITOR PATIENT. DAY THREE, PT COMPLAINED OF CHEST WALL SORENESS "FROM COUGHING" PT HAD LOWER EXP WHEEZES AND A HOARSE BARKING COUGH, MINIMAL SPUTUM PRODUCTION. SHE COMPLAINED OF SORE THROAT THIS AM AND CONTINUED SEVERE COUGHING SPELLS. PT WAS CURRENTLY ON JET NEBS AND BUDESONISE, ROBITUSSIN AND TUSSIONEX. WE ADDED TESSALON PERLES, SHES ON IV STEROIDS. ENCOURAGED INCREASED PO HYDRATION. PT HAD ANEMIA PANEL HGB 8.7, IRON LEVEL 22. PLAN IV IRON INFUSION TODAY, REPEATED AM LABS AND CONTINUED RESP THERAPY. DAY FIVE, WAS ADMITTED FOR BRONCHOPNEUMONIA, FAILED OUTPATIENT TREATMENT. TODAY, SHE WAS ALERT AND ORIENTED, SITTING UP IN BED ON MORNING ROUNDS. SHE CONTINUED WITH COMPLAINTS OF SHORTNESS OF BREATH AND A PERSISTENT, NON-PRODUCTIVE COUGH, BUT REPORTED IMPROVEMENT SINCE YESTERDAY. ON EXAMINATION, HEART WAS REGULAR IN RATE AND RHYTHM. BILATERAL LUNGS WERE NOTED WITH SCATTERED WHEEZING AND RHONCHI. HER VITALS THIS MORNING WERE 98.2-59-20-95%RA-148/67. LABS WERE OBTAINED. ABNORMAL LAB VALUES INCLUDED THE FOLLOWING: WBC INCREASED TO 17.2, RBC 2.62, HGB 7.5, HCT 22.7, BUN 24, CREATININE 1.27, GLUCOSE 147, CALCIUM 8.0, TOTAL BILI 0.10, ALK PHOS 37, ALBUMIN 3.1. TODAYS CHEST XRAY REMAINED STABLE. THERE HAD BEEN A PERSISTENT DECLINE IN PATIENTS HEMOGLOBIN SINCE ADMISSION. WE OBTAINED STOOLS FOR OCCULT BLOOD. SHE WAS CURRENTLY RECEIVING RESPIRATORY TREATMENTS, SOLU-MEDROL 40MG IV Q8H, ZOSYN 4.5GM IV TID, TUSSIONEX, AND TESSALON PERLES. WE CONTINUED WITH CURRENT PLAN OF CARE TODAY AND STARTED HEMOCYTE 106MG PO DAILY AND FOLIC ACID 2MG PO DAILY. WE RECHECKED HER HEMOGLOBIN AT 1700. WE FOLLOWED UP WITH AM LABS AND CHEST XRAY AND CONTINUED TO MONITOR PATIENT.DAY SIX, PATIENT SYMPTOMS IMPROVING. LUNG SOUNDS ARE DIMINISHED AND COARSE ON AUSCULTATION. PATIENT VOICES ZERO COMPLAINTS OF RESPIRATORY COMPLICATIONS AT THIS TIME. ZERO SIGNS AND SYMPTOMS OF ACUTE DISTRESS NOTED, VITAL SIGNS ARE STABLE. WE PLANNED FOR DISCHARGE. INSTRUCTIONS FOR MEDICATIONS AND FOLLOW UP WERE DISCUSSED WITH PATIENT AND FAMILY, BOTH VOICED VOICED UNDERSTANDING. PATIENT DISCHARGED HOME IN STABLE CONDITION WITH FAMILY. - Discharge Medications Discharge Medications: Home Medication List alprazolam 1 tab PO DAILY PRN 05/12/18 [History] amlodipine 1 tab PO DAILY 05/12/18 [History] cefdinir 1 tab PO BID 05/12/18 [History] meclizine 1 tab PO TID 05/12/18 [History] montelukast 1 tab PO DAILY 05/12/18 [History] amoxicillin-pot clavulanate [Augmentin] 1 tab PO BID #20 tab 05/17/18 [Rx] benzonatate 200 mg PO TID PRN #30 cap 05/17/18 [Rx] fexofenadine-pseudoephedrine [Jessica-D 12 Hour] 1 tab PO Q12H PRN #20 tab 05/17/18 [Rx] hydrocodone-chlorpheniramine 5 ml PO Q12H #100 ml 05/17/18 [Rx] levalbuterol HCl 1.25 mg NEB TID #50 units 05/17/18 [Rx] Prescriptions: amoxicillin-pot clavulanate [Augmentin] Roland Mercedes benzonatate Roland Mercedes fexofenadine-pseudoephedrine [Jessica-D 12 Hour] Roland Mercedes hydrocodone-chlorpheniramine Roland Mercedes levalbuterol HCl Roland Mercedes - Discharge Disposition Discharge Disposition: PATIENT TO FOLLOW UP IN OUR OFFICE IN ONE WEEK.
== END 2018-05-17 10:55 | disposition home or self-care (01) | DRG 195 ==
LOC: MED/SURG 09:21
PROVIDERS: ADMIT Internal Medicine; ATTEND Internal Medicine
DX: D50.0 Iron deficiency anemia secondary to blood loss (chronic); F41.8 Other specified anxiety disorders; K21.9 Gastro-esophageal reflux disease without esophagitis; R06.02 Shortness of breath; F32.89 Other specified depressive episodes; J44.9 Chronic obstructive pulmonary disease, unspecified; D03.8 Melanoma in situ of other sites; E03.8 Other specified hypothyroidism; J18.0 Bronchopneumonia, unspecified organism
CPT/HCPCS: 36415; 71010; 71020; 71045; 71046; 80053; 82270; 82607; 82728; 82746; 83540; 83735; 84466; 85014; 85018; 85025; 87040; 87502; 94640; 94760; 99231; A4222; J1756; J2543; J2920; J3475; J7050; J7620; J7626

== ENCOUNTER 2019-05-03 10:55 | Inpatient (IN) ==
[2019-05-03] MEDS ORDERED: SALINE 3% 15 ML NEB TX NEB ONE (12:55)
[2019-05-03] MEDS ORDERED: DUONEB 0.5 MG/3 MG NEB SCH (13:00)
[2019-05-03 13:46] LABS: BASOPHILS # (AUTO) 0.1 X10^3/uL (0.0-0.1); BASOPHILS % (AUTO) 0.9 % (0.2-1.0); EOSINOPHILS # (AUTO) 0.2 x10^3/uL (0.0-0.2); EOSINOPHILS % (AUTO) 3.7 % (0.9-2.9); HEMATOCRIT 23.7 % (36.0-47.0); HEMOGLOBIN 7.6 g/dL (12.0-16.0); LYMPHOCYTES # (AUTO) 1.8 X10^3/uL (1.3-2.9); LYMPHOCYTES % (AUTO) 29.2 % (21.0-51.0); MEAN CORPUSCULAR HEMOGLOBIN 25.2 pg (27.0-34.0); MEAN CORPUSCULAR HGB CONC 32.2 g/dL (33.0-35.0); MEAN CORPUSCULAR VOLUME 78.3 fL (80.0-100.0); MEAN PLATELET VOLUME 7.8 fL (7.4-11.0); MONOCYTES # (AUTO) 0.7 x10^3/uL (0.3-0.8); MONOCYTES % (AUTO) 11.4 % (0.0-13.0); NEUTROPHILS # (AUTO) 3.4 x10^3/uL (2.2-4.8); NEUTROPHILS % (AUTO) 54.8 % (42.0-75.0); PLATELET COUNT 404 X10^3/uL (150.0-450.0); RED BLOOD COUNT 3.03 X10^6/uL (3.5-5.4); RED CELL DISTRIBUTION WIDTH 16.9 % (11.6-16.5); WHITE BLOOD COUNT 6.1 X10^3/uL (3.6-10.0)
[2019-05-03 13:49] LABS: ALANINE AMINOTRANSFERASE 10 Units/L (12-78); ALBUMIN 3.6 g/dL (3.4-5.0); ALKALINE PHOSPHATASE 37 Units/L (46-116); ASPARTATE AMINO TRANSFERASE 14 Units/L (15-37); BLOOD UREA NITROGEN 28 mg/dL (7-18); CALCIUM 9.2 mg/dL (8.5-10.1); CARBON DIOXIDE 30.3 mmol/L (21-32); CHLORIDE 100 mmol/L (98-107); CREATININE 1.58 mg/dL (0.55-1.02); SODIUM 136 mmol/L (136-145); TOTAL PROTEIN 7.3 g/dL (6.4-8.2); eGFR NON BLACK RACES 35 (>60)
[2019-05-03 14:09] LABS: ANISOCYTOSIS SLIGHT; HYPOCHROMASIA SLIGHT; PLATELET MORPHOLOGY COMMENT NORMAL (NORMAL)
[2019-05-03] MEDS ORDERED: NS 1/2 1000 ML IV 1,000 ML IV ONE (14:14)
[2019-05-03] MEDS: ROBITUSSIN DM PO SCH ×3 (14:30→20:15)
[2019-05-03] MEDS: TUSSIONEX PENNKINETIC SUSP PO PRN (14:30)
[2019-05-03] MEDS: FORTAZ or TAZICEF VIAL INJ 1 G in NS 100 ML IV + SPIKE MINIBAG* 100 ML IV SCH ×3 (14:31→21:48)
[2019-05-03] MEDS: VSL#3 PO SCH (14:32)
[2019-05-03] MEDS: NS 1/2 1000 ML IV 1,000 ML IV SCH (14:32)
[2019-05-03] MEDS: LEVAQUIN PREMIX IV 750 MG 750 MG/150 ML BAG IV SCH (14:33)
[2019-05-03 14:48] VITALS: BMI 35.9
[2019-05-03] MEDS: DUONEB 0.5 MG/3 MG NEB SCH ×2 (16:23→20:00)
[2019-05-03] MEDS: ROXICODONE TAB 5 MG PO PRN ×2 (16:23→22:49)
[2019-05-03] MEDS: SOMA TAB 350 MG PO PRN (16:24)
[2019-05-03] MEDS ORDERED: ZOFRAN INJ 4 MG VIAL ONE (17:48)
[2019-05-03] MEDS ORDERED: TESSALON PERLES PO ONE ×2 (17:48→18:00)
[2019-05-03 17:50] LABS: HEMATOCRIT 23.2 % (36.0-47.0); HEMOGLOBIN 7.5 g/dL (12.0-16.0)
[2019-05-03] MEDS: ZOFRAN INJ 4 MG VIAL IVP PRN (17:52)
[2019-05-03] MEDS: PULMICORT NEB TX 0.5 MG NEB SCH (20:00)
[2019-05-03] MEDS: AMBIEN PO SCH (20:15)
[2019-05-03] MEDS: TRICOR TAB 145 MG PO SCH (20:15)
[2019-05-03] MEDS: LIPITOR TAB 40 MG PO SCH (20:15)
[2019-05-03] MEDS: NEURONTIN TAB 600 MG PO SCH (20:15)
[2019-05-03] MEDS: KLONOPIN TAB 1 MG PO SCH (20:15)
--- NOTE | 2019-05-03 21:16 | DR.UPDATE ---
H&P Update History and Physical Update: History and Physical reviewed and patient examined. Changes noted: Yes with the following: HAS BEEN TREATED IN THE OFFICE FOR ACUTE BRONCHITIS AND SINUSITIS. SHE WAS TREATED WITH ROCEPHIN 1G IM X 1, LEVAQUIN 500MG PO X 10 DAYS, A MEDROL DOSEPACK, AND RESPIRATORY TREATMENTS. SHE DENIES IMPROVEMENT IN SYMPTOMS. LUNGS CONTINUE WITH SCATTERED WHEEZING. SHE WAS ADMITTED FOR FURTHER EVALUATION AND TREATMENT OF BRONCHOPNEUMONIA. SHE WILL BE STARTED ON THE PNEUMONIA PROTOCOL WITH IV FORTAZ AND LEVAQUIN, RESPIRATORY TREATMENTS, AND SUPPLEMENTAL OXYGEN. WE WILL OBTAIN LABS AND A CHEST XRAY. OTHERWISE, WE WILL FOLLOW UP WITH AM LABS AND CONTINUE TO MONITOR. Prescription drug monitoring program results: PDMP was not reviewed
[2019-05-04] MEDS: DUONEB 0.5 MG/3 MG NEB SCH ×6 (00:25→20:20)
[2019-05-04] MEDS: TUSSIONEX PENNKINETIC SUSP PO PRN ×2 (03:30→15:19)
[2019-05-04] MEDS: ROXICODONE TAB 5 MG PO PRN ×4 (04:37→23:34)
[2019-05-04 04:50] LABS: BASOPHILS % (AUTO) 0.8 % (0.2-1.0); EOSINOPHILS # (AUTO) 0.2 x10^3/uL (0.0-0.2); EOSINOPHILS % (AUTO) 3.5 % (0.9-2.9); HEMOGLOBIN 7.5 g/dL (12.0-16.0); LYMPHOCYTES # (AUTO) 1.3 X10^3/uL (1.3-2.9); LYMPHOCYTES % (AUTO) 22.8 % (21.0-51.0); MEAN CORPUSCULAR HEMOGLOBIN 25.5 pg (27.0-34.0); MEAN CORPUSCULAR HGB CONC 32.8 g/dL (33.0-35.0); MEAN CORPUSCULAR VOLUME 77.7 fL (80.0-100.0); MEAN PLATELET VOLUME 7.6 fL (7.4-11.0); MONOCYTES # (AUTO) 0.8 x10^3/uL (0.3-0.8); MONOCYTES % (AUTO) 13.8 % (0.0-13.0); NEUTROPHILS # (AUTO) 3.2 x10^3/uL (2.2-4.8); NEUTROPHILS % (AUTO) 59.1 % (42.0-75.0); PLATELET COUNT 414 X10^3/uL (150.0-450.0); RED BLOOD COUNT 2.96 X10^6/uL (3.5-5.4); RED CELL DISTRIBUTION WIDTH 17.3 % (11.6-16.5); WHITE BLOOD COUNT 5.5 X10^3/uL (3.6-10.0)
[2019-05-04] MEDS: NS 1/2 1000 ML IV 1,000 ML IV SCH (04:50)
[2019-05-04 04:52] LABS: ALANINE AMINOTRANSFERASE 9 Units/L (12-78); ALBUMIN 3.4 g/dL (3.4-5.0); ALKALINE PHOSPHATASE 37 Units/L (46-116); ASPARTATE AMINO TRANSFERASE 11 Units/L (15-37); BLOOD UREA NITROGEN 22 mg/dL (7-18); CALCIUM 8.6 mg/dL (8.5-10.1); CARBON DIOXIDE 31.3 mmol/L (21-32); CHLORIDE 102 mmol/L (98-107); CREATININE 1.33 mg/dL (0.55-1.02); SODIUM 139 mmol/L (136-145); TOTAL PROTEIN 7.1 g/dL (6.4-8.2); eGFR NON BLACK RACES 43 (>60)
[2019-05-04 04:56] LABS: PLATELET MORPHOLOGY COMMENT NORMAL (NORMAL)
[2019-05-04 04:57] LABS: ANISOCYTOSIS SLIGHT
[2019-05-04] MEDS: FORTAZ or TAZICEF VIAL INJ 1 G in NS 100 ML IV + SPIKE MINIBAG* 100 ML IV SCH ×3 (05:08→21:43)
[2019-05-04] MEDS ORDERED: NS 1/2 1000 ML IV 1,000 ML IV ONE (05:55)
--- NOTE | 2019-05-04 06:02 | RAD ---
Examination: AP chest History: Cough SOB Comparison 05/03/2019 Findings: Small infiltrate in the right lower lobe is less prominent but still present. Heart size remains normal. The left chest is clear. Impression: No discrete mass although there remains a small infiltrate in the right lower lung. Continued follow-up suggested. Reported By:
[2019-05-04] MEDS: PULMICORT NEB TX 0.5 MG NEB SCH ×2 (08:16→20:20)
[2019-05-04] MEDS: PLAVIX PO SCH (08:59)
[2019-05-04] MEDS: SINGULAIR TAB 10 MG PO SCH (08:59)
[2019-05-04] MEDS: ROBITUSSIN DM PO SCH ×4 (08:59→21:22)
[2019-05-04] MEDS: VSL#3 PO SCH (08:59)
[2019-05-04] MEDS: ASPIRIN EC 81 MG PO SCH (09:00)
[2019-05-04] MEDS: NORVASC TAB 5 MG PO SCH (09:00)
[2019-05-04] MEDS: NexIUM PO SCH (09:00)
[2019-05-04] MEDS: TESSALON PERLES PO SCH ×2 (09:00→21:22)
[2019-05-04] MEDS: LEVAQUIN PREMIX IV 750 MG 750 MG/150 ML BAG IV SCH (09:00)
[2019-05-04] MEDS: NEURONTIN TAB 600 MG PO SCH ×2 (09:00→21:22)
[2019-05-04 10:31] LABS: HEMATOCRIT 23.5 % (36.0-47.0); HEMOGLOBIN 7.4 g/dL (12.0-16.0)
--- NOTE | 2019-05-04 10:33 | CT ---
HISTORY: Shortness of breath, bronchopneumonia, cough Study: CT chest with contrast Comparison: None Technique: Multiple axial images of the chest were obtained from the thoracic inlet to the upper abdomen after the administration of IV contrast. Dose reduction techniques including Automated Exposure Control (AEC) and adjustment of mA and kV were utilized. Findings: Normal sized heart. No pericardial effusion. The aorta appears normal in caliber. There are bilateral lower lobe right middle lobe infiltrate suggestive of pneumonia. Mild paraseptal emphysematous changes are present minimal ground-glass opacity is seen at left lung apex. Airways are patent. No effusion or pneumothorax. The soft tissues and osseous structures appear intact. Incidental note hepatic steatosis and prior cholecystectomy. IMPRESSION: 1. Multifocal bilateral infiltrates worse in the lower lobes compatible with pneumonia. Reported By:
[2019-05-04] MEDS: SOMA TAB 350 MG PO PRN ×2 (10:38→17:09)
[2019-05-04] MEDS: MUCOMYST 20% 200 MG/ML NEB SCH ×3 (12:00→20:20)
[2019-05-04 14:18] LABS: HEMATOCRIT 22.8 % (36.0-47.0); HEMOGLOBIN 7.5 g/dL (12.0-16.0)
[2019-05-04] MEDS: SYNTHROID 112 mcg TAB PO SCH (16:45)
[2019-05-04 17:56] LABS: HEMATOCRIT 23.1 % (36.0-47.0); HEMOGLOBIN 7.5 g/dL (12.0-16.0)
[2019-05-04] MEDS ORDERED: TESSALON PERLES PO SCH (21:00)
[2019-05-04] MEDS: TRICOR TAB 145 MG PO SCH (21:22)
[2019-05-04] MEDS: AMBIEN PO SCH (21:22)
[2019-05-04] MEDS: LIPITOR TAB 40 MG PO SCH (21:22)
[2019-05-04] MEDS: KLONOPIN TAB 1 MG PO SCH (21:23)
[2019-05-04 21:34] LABS: HEMATOCRIT 23.7 % (36.0-47.0); HEMOGLOBIN 7.5 g/dL (12.0-16.0)
[2019-05-04] MEDS: ZOFRAN INJ 4 MG VIAL IVP PRN (21:44)
[2019-05-05] MEDS: DUONEB 0.5 MG/3 MG NEB SCH ×6 (00:30→20:39)
[2019-05-05] MEDS ORDERED: NS 1/2 1000 ML IV 1,000 ML IV ONE ×2 (00:46→20:17)
[2019-05-05] MEDS: NS 1/2 1000 ML IV 1,000 ML IV SCH ×4 (00:49→20:28)
[2019-05-05] MEDS: TUSSIONEX PENNKINETIC SUSP PO PRN (03:11)
[2019-05-05 05:18] LABS: BASOPHILS % (AUTO) 0.8 % (0.2-1.0); EOSINOPHILS # (AUTO) 0.2 x10^3/uL (0.0-0.2); EOSINOPHILS % (AUTO) 4.1 % (0.9-2.9); HEMATOCRIT 22.2 % (36.0-47.0); HEMOGLOBIN 7.1 g/dL (12.0-16.0); LYMPHOCYTES # (AUTO) 1.3 X10^3/uL (1.3-2.9); LYMPHOCYTES % (AUTO) 22.8 % (21.0-51.0); MEAN CORPUSCULAR VOLUME 78.3 fL (80.0-100.0); MEAN PLATELET VOLUME 7.7 fL (7.4-11.0); MONOCYTES # (AUTO) 0.7 x10^3/uL (0.3-0.8); MONOCYTES % (AUTO) 11.9 % (0.0-13.0); NEUTROPHILS # (AUTO) 3.3 x10^3/uL (2.2-4.8); NEUTROPHILS % (AUTO) 60.4 % (42.0-75.0); PLATELET COUNT 406 X10^3/uL (150.0-450.0); RED BLOOD COUNT 2.84 X10^6/uL (3.5-5.4); RED CELL DISTRIBUTION WIDTH 16.9 % (11.6-16.5); WHITE BLOOD COUNT 5.5 X10^3/uL (3.6-10.0)
[2019-05-05 05:22] LABS: PLATELET MORPHOLOGY COMMENT NORMAL (NORMAL)
[2019-05-05 05:23] LABS: ANISOCYTOSIS SLIGHT; HYPOCHROMASIA SLIGHT
[2019-05-05 05:25] LABS: ALANINE AMINOTRANSFERASE 10 Units/L (12-78); ALKALINE PHOSPHATASE 36 Units/L (46-116); ASPARTATE AMINO TRANSFERASE 14 Units/L (15-37); BLOOD UREA NITROGEN 15 mg/dL (7-18); CALCIUM 8.4 mg/dL (8.5-10.1); CARBON DIOXIDE 29.5 mmol/L (21-32); CHLORIDE 105 mmol/L (98-107); COR CA(FOR HYPOALB) 9.2 mg/dL (8.5-10.1); COR NA(FOR HYPERGLY) 142 mmol/L (136-145); CREATININE 1.15 mg/dL (0.55-1.02); SODIUM 142 mmol/L (136-145); TOTAL PROTEIN 6.6 g/dL (6.4-8.2); eGFR NON BLACK RACES 51 (>60)
[2019-05-05] MEDS: FORTAZ or TAZICEF VIAL INJ 1 G in NS 100 ML IV + SPIKE MINIBAG* 100 ML IV SCH ×3 (06:24→21:00)
--- NOTE | 2019-05-05 06:32 | RAD ---
Examination: AP chest History: SOB Comparison 05/04/2019 Findings: Continued normal heart size. No left lung abnormality is noted. Ill defined infiltrate persists in the right lung base. There is no new abnormality noted. Impression: Persistent small ill-defined infiltrate in the right lower lung consistent with pneumonia. Reported By:
[2019-05-05] MEDS: ROXICODONE TAB 5 MG PO PRN ×3 (06:50→19:42)
[2019-05-05] MEDS: PULMICORT NEB TX 0.5 MG NEB SCH (09:01)
[2019-05-05] MEDS: MUCOMYST 20% 200 MG/ML NEB SCH ×4 (09:02→20:39)
[2019-05-05] MEDS: LEVAQUIN PREMIX IV 750 MG 750 MG/150 ML BAG IV SCH (09:23)
[2019-05-05] MEDS: ASPIRIN EC 81 MG PO SCH (09:23)
[2019-05-05] MEDS: PLAVIX PO SCH (09:24)
[2019-05-05] MEDS: NexIUM PO SCH (09:24)
[2019-05-05] MEDS: NEURONTIN TAB 600 MG PO SCH ×2 (09:24→20:27)
[2019-05-05] MEDS: NORVASC TAB 5 MG PO SCH (09:24)
[2019-05-05] MEDS: VSL#3 PO SCH (09:25)
[2019-05-05] MEDS: TESSALON PERLES PO SCH ×3 (09:25→21:00)
[2019-05-05] MEDS: SINGULAIR TAB 10 MG PO SCH (09:25)
[2019-05-05] MEDS: ROBITUSSIN DM PO SCH ×4 (09:25→20:27)
[2019-05-05] MEDS: TUSSIONEX PENNKINETIC SUSP PO SCH (13:30)
[2019-05-05] MEDS: DECADRON JET NEB (RESP USE) NEB SCH ×2 (16:50→20:40)
[2019-05-05] MEDS: SYNTHROID 112 mcg TAB PO SCH (17:03)
[2019-05-05] MEDS: NYSTATIN SUSP PO SCH ×2 (17:03→20:27)
[2019-05-05] MEDS ORDERED: COLACE CAP 100 MG PO PRN (20:23)
[2019-05-05] MEDS: TRICOR TAB 145 MG PO SCH (20:26)
[2019-05-05] MEDS: KLONOPIN TAB 1 MG PO SCH (20:27)
[2019-05-05] MEDS: LIPITOR TAB 40 MG PO SCH (20:27)
[2019-05-05] MEDS: AMBIEN PO SCH (20:28)
[2019-05-05] MEDS ORDERED: NS 250 ML IV 250 ML IV ONE (22:30)
[2019-05-06] MEDS: DUONEB 0.5 MG/3 MG NEB SCH ×6 (00:31→20:28)
[2019-05-06] MEDS: SOMA TAB 350 MG PO PRN ×2 (00:45→21:41)
[2019-05-06] MEDS: TUSSIONEX PENNKINETIC SUSP PO SCH ×2 (01:18→13:12)
[2019-05-06] MEDS: ROXICODONE TAB 5 MG PO PRN ×4 (01:23→19:12)
[2019-05-06] MEDS: TESSALON PERLES PO SCH ×3 (04:59→21:42)
[2019-05-06] MEDS: FORTAZ or TAZICEF VIAL INJ 1 G in NS 100 ML IV + SPIKE MINIBAG* 100 ML IV SCH ×3 (06:53→21:43)
[2019-05-06 07:31] LABS: BASOPHILS % (AUTO) 0.7 % (0.2-1.0); EOSINOPHILS # (AUTO) 0.1 x10^3/uL (0.0-0.2); EOSINOPHILS % (AUTO) 2.5 % (0.9-2.9); HEMATOCRIT 29.5 % (36.0-47.0); HEMOGLOBIN 9.8 g/dL (12.0-16.0); LYMPHOCYTES # (AUTO) 1.2 X10^3/uL (1.3-2.9); LYMPHOCYTES % (AUTO) 20.7 % (21.0-51.0); MEAN CORPUSCULAR HEMOGLOBIN 26.4 pg (27.0-34.0); MEAN CORPUSCULAR HGB CONC 33.3 g/dL (33.0-35.0); MEAN CORPUSCULAR VOLUME 79.3 fL (80.0-100.0); MEAN PLATELET VOLUME 7.5 fL (7.4-11.0); MONOCYTES # (AUTO) 0.6 x10^3/uL (0.3-0.8); NEUTROPHILS # (AUTO) 3.8 x10^3/uL (2.2-4.8); NEUTROPHILS % (AUTO) 65.1 % (42.0-75.0); PLATELET COUNT 414 X10^3/uL (150.0-450.0); RED BLOOD COUNT 3.72 X10^6/uL (3.5-5.4); RED CELL DISTRIBUTION WIDTH 16.5 % (11.6-16.5); WHITE BLOOD COUNT 5.8 X10^3/uL (3.6-10.0)
--- NOTE | 2019-05-06 07:35 | RAD ---
HISTORY: 63-year-old female with shortness of breath. History of COPD. Study: Frontal view of the chest. Comparison: Chest radiograph 05/05/2019 Findings: The trachea is midline. The cardiac silhouette is stably enlarged with continued prominence interstitium perihilar lung markings with near-complete clearance of right basilar airspace opacity. The lungs are clear without focal consolidation, effusion or pneumothorax. Soft tissues are unremarkable. Osseous structures are unremarkable. IMPRESSION: 1. Near complete clearance right basilar airspace opacity. 2. Chronic cardiomegaly and COPD without other acute cardiopulmonary process. Reported By:
[2019-05-06 07:41] LABS: ALANINE AMINOTRANSFERASE 9 Units/L (12-78); ALBUMIN 3.4 g/dL (3.4-5.0); ALKALINE PHOSPHATASE 42 Units/L (46-116); ASPARTATE AMINO TRANSFERASE 16 Units/L (15-37); BLOOD UREA NITROGEN 15 mg/dL (7-18); CALCIUM 9.2 mg/dL (8.5-10.1); CARBON DIOXIDE 28.2 mmol/L (21-32); CHLORIDE 104 mmol/L (98-107); CREATININE 0.98 mg/dL (0.55-1.02); SODIUM 142 mmol/L (136-145); TOTAL PROTEIN 7.4 g/dL (6.4-8.2); eGFR NON BLACK RACES > 60 (>60)
[2019-05-06] MEDS: MUCOMYST 20% 200 MG/ML NEB SCH ×4 (09:17→20:28)
[2019-05-06] MEDS: DECADRON JET NEB (RESP USE) NEB SCH ×4 (09:17→20:29)
[2019-05-06] MEDS: ROBITUSSIN DM PO SCH ×4 (09:25→21:43)
[2019-05-06] MEDS: LEVAQUIN PREMIX IV 750 MG 750 MG/150 ML BAG IV SCH (09:34)
[2019-05-06] MEDS: NEURONTIN TAB 600 MG PO SCH ×2 (09:37→21:42)
[2019-05-06] MEDS: ASPIRIN EC 81 MG PO SCH (09:37)
[2019-05-06] MEDS: NORVASC TAB 5 MG PO SCH (09:37)
[2019-05-06] MEDS: VSL#3 PO SCH (09:39)
[2019-05-06] MEDS: PLAVIX PO SCH (09:40)
[2019-05-06] MEDS: NYSTATIN SUSP PO SCH ×4 (09:54→21:42)
[2019-05-06] MEDS: NexIUM PO SCH (09:54)
[2019-05-06] MEDS: SINGULAIR TAB 10 MG PO SCH (09:55)
[2019-05-06] MEDS: SYNTHROID 112 mcg TAB PO SCH (18:54)
--- NOTE | 2019-05-06 20:00 | PCM.PROG ---
Progress Note - Progress Note for Day of Date of Exam: 05/04/19 - Subjective Subjective: WAS ADMITTED FOR BRONCHOPNEUMONIA, FAILED OUTPATIENT TREATMENT. TODAY, SHE IS ALERT AND ORIENTED, SITTING UP IN BED ON MORNING ROUNDS. SHE CONTINUES WITH COMPLAINTS OF SHORTNESS OF BREATH AND A PERSISTENT, NON-PRODUCTIVE COUGH. ON EXAMINATION, HEART IS REGULAR IN RATE AND RHYTHM. B ILATERAL LUNGS ARE NOTED WITH SCATTERED WHEEZING AND RHONCHI. HER VITALS THIS MORNING ARE 99.3-84-18-95%-115/54. LABS WERE OBTAINED. ABNORMAL LAB VALUES INCLUDE THE FOLLOWING: WBC 2.96, HGB 7.5, HCT 23.0, BUN 22, CREATININE 1.33, TOTAL BILI 0.10, AST 11, ALT 9, ALK PHOS 37. BLOOD CULTURES ARE PENDING. TODAYS CHEST XRAY REVEALED: No discrete mass although there remains a small infiltrate in the right lower lung. Continued follow-up suggested. SHE IS CURRENTLY RECEIVING IV FORTAZ, IV LEVAQUIN, RESPIRATORY TREATMENTS, TUSSIONEX, AND TESSALON PERLES. TODAY, WE WILL START MUCOMYST IN [facility], OBTAIN A CHEST CT, CHECK STOOLS FOR OCCULT BLOOD, AND MONITOR H&H Q4H. IF HER HEMOGLOBIN FALLS BELOW 7, WE WILL TRANSFUSE 2 UNITS OF PACKED RED BLOOD CELLS. OTHERWISE, WE WILL CONTINUE WITH CURRENT PLAN OF CARE TODAY. WE PLAN TO FOLLOW UP WITH AM LABS AND CHEST XRAY AND CONTINUE TO MONITOR PATIENT. - Past Medical Family Social History Past Med/Fam/Surg Hx: No changes since H&P Allergies: Allergies No Known Drug Allergies Allergy (Verified 01/18/18 10:24) - Review of Systems ROS: No change since H&P - Vital Signs and I&O's Vital Signs: Temperature 98.3 F Pulse Rate [Right] 70 Pulse Rate 79 Respiratory Rate 18 Blood Pressure [Left Arm] 132/66 Blood Pressure [Right Arm] 136/64 Blood Pressure 142/62 O2 Sat by Pulse Oximetry 96 Intake and Output: Intake & Output 05/04/19 05/05/19 05/06/19 05/07/19 11:59 11:59 11:59 11:59 Intake Total 2059 2740 / 2740 2815 / 2815 1200 / 1200 Balance 2059 2740 / 2740 2815 / 2815 1200 / 1200 - Physical Exam Oriented: Normal Eyes: Normal Ear: Normal Nose: Normal Throat: Normal Respiratory: Generalized, Diminished, Wheezes, Rhonchi Cardiovascular: Normal. negative: S3, S4, Murmur : Normal Auscultation: Bowel Sounds: Normal Palpation: Normal Tenderness: Normal Skin: Normal Musculoskeletal: Normal Psychiatric: Normal Mood Description: Calm Affect: Normal Speech Pattern: Clear, Appropriate - Laboratory and Diagnostics Result Diagrams: 05/06/19 07:10 05/06/19 07:10 Labs: 05/03/19 13:57 Blood Blood Culture - Preliminary 05/03/19 13:53 Blood Blood Culture - Preliminary Laboratory WBC 5.8 X10^3/uL (3.6-10.0) 05/06/19 07:10 RBC 3.72 X10^6/uL (3.5-5.4) 05/06/19 07:10 Hgb 9.8 g/dL (12.0-16.0) L D 05/06/19 07:10 Hct 29.5 % (36.0-47.0) L 05/06/19 07:10 MCV 79.3 fL (80.0-100.0) L 05/06/19 07:10 MCH 26.4 pg (27.0-34.0) L 05/06/19 07:10 MCHC 33.3 g/dL (33.0-35.0) 05/06/19 07:10 RDW 16.5 % (11.6-16.5) 05/06/19 07:10 Plt Count 414 X10^3/uL (150.0-450.0) 05/06/19 07:10 Plt Count Comment Adequate (ADEQUATE) 05/05/19 04:39 MPV 7.5 fL (7.4-11.0) 05/06/19 07:10 Neut % (Auto) 65.1 % (42.0-75.0) 05/06/19 07:10 Lymph % (Auto) 20.7 % (21.0-51.0) L 05/06/19 07:10 [place] % (Auto) 11.0 % (0.0-13.0) 05/06/19 07:10 Eos % (Auto) 2.5 % (0.9-2.9) 05/06/19 07:10 Baso % (Auto) 0.7 % (0.2-1.0) 05/06/19 07:10 Neut # (Auto) 3.8 x10^3/uL (2.2-4.8) 05/06/19 07:10 Lymph # (Auto) 1.2 X10^3/uL (1.3-2.9) L 05/06/19 07:10 [place] # (Auto) 0.6 x10^3/uL (0.3-0.8) 05/06/19 07:10 Eos # (Auto) 0.1 x10^3/uL (0.0-0.2) 05/06/19 07:10 Baso # (Auto) 0.0 X10^3/uL (0.0-0.1) 05/06/19 07:10 Absolute Nucleated RBC 0.1 /100WBC 05/06/19 07:10 Plt Morphology Comment Normal (NORMAL) 05/05/19 04:39 RBC Morphology Abnormal (NORMAL) A 05/05/19 04:39 Hypochromasia Slight A 05/05/19 04:39 Anisocytosis Slight A 05/05/19 04:39 Sodium 142 mmol/L (136-145) 05/06/19 07:10 Corrected Sodium TNP 05/06/19 07:10 Potassium 4.0 mmol/L (3.5-5.1) 05/06/19 07:10 Chloride 104 mmol/L (98-107) 05/06/19 07:10 Carbon Dioxide 28.2 mmol/L (21-32) 05/06/19 07:10 BUN 15 mg/dL (7-18) 05/06/19 07:10 Creatinine 0.98 mg/dL (0.55-1.02) 05/06/19 07:10 Est GFR (MDRD) Af Amer > 60 (>60) 05/06/19 07:10 Est GFR (MDRD) Non-Af > 60 (>60) 05/06/19 07:10 Glucose 108 mg/dL (65-99) H 05/06/19 07:10 Calcium 9.2 mg/dL (8.5-10.1) 05/06/19 07:10 Corrected Calcium TNP 05/06/19 07:10 Total Bilirubin 0.30 mg/dL (0.2-1.0) 05/06/19 07:10 AST 16 Units/L (15-37) 05/06/19 07:10 ALT 9 Units/L (12-78) L 05/06/19 07:10 Alkaline Phosphatase 42 Units/L (46-116) L 05/06/19 07:10 Total Protein 7.4 g/dL (6.4-8.2) 05/06/19 07:10 Albumin 3.4 g/dL (3.4-5.0) 05/06/19 07:10 Globulin 4.0 g/dL (2.5-4.5) 05/06/19 07:10 Albumin/Globulin Ratio 0.9 Ratio (1.1-2.1) L 05/06/19 07:10 Blood Type O POSITIVE 05/03/19 17:07 Antibody Screen Negative 05/03/19 17:07 Crossmatch See Detail 05/03/19 17:07 - Plan (1) Bronchopneumonia Status: Acute Plan: IV FORTAZ, IV LEVAQUIN, RESPIRATORY [place], SUPPLEMENTAL OXYGEN, TESSALON, TUSSIONEX, OBTAIN CHEST CT, MUCOMYST IN [place] (2) Anemia Status: Acute Qualifiers: Anemia type: iron deficiency Iron deficiency anemia type: unspecified iron deficiency Qualified Code(s): D50.9 - Iron deficiency anemia, unspecified Plan: MONITOR H&H, OBTAIN STOOLS FOR OCCULT BLOOD, TRANSFUSE IF HGB FALLS BELOW 7
[2019-05-06] MEDS ORDERED: NS 1/2 1000 ML IV 1,000 ML IV ONE (20:58)
[2019-05-06] MEDS: TRICOR TAB 145 MG PO SCH (21:41)
[2019-05-06] MEDS: AMBIEN PO SCH (21:41)
[2019-05-06] MEDS: NS 1/2 1000 ML IV 1,000 ML IV SCH (21:41)
[2019-05-06] MEDS: LIPITOR TAB 40 MG PO SCH (21:41)
[2019-05-06] MEDS: KLONOPIN TAB 1 MG PO SCH (21:42)
[2019-05-07] MEDS: DUONEB 0.5 MG/3 MG NEB SCH ×4 (01:15→12:08)
[2019-05-07] MEDS: TUSSIONEX PENNKINETIC SUSP PO SCH ×2 (01:16→11:23)
[2019-05-07] MEDS: NS 1/2 1000 ML IV 1,000 ML IV SCH (01:16)
[2019-05-07] MEDS: ROXICODONE TAB 5 MG PO PRN ×2 (01:17→08:10)
[2019-05-07 04:54] LABS: BASOPHILS % (AUTO) 0.5 % (0.2-1.0); EOSINOPHILS # (AUTO) 0.2 x10^3/uL (0.0-0.2); EOSINOPHILS % (AUTO) 2.1 % (0.9-2.9); HEMATOCRIT 30.3 % (36.0-47.0); LYMPHOCYTES # (AUTO) 1.6 X10^3/uL (1.3-2.9); LYMPHOCYTES % (AUTO) 19.9 % (21.0-51.0); MEAN CORPUSCULAR HEMOGLOBIN 26.5 pg (27.0-34.0); MEAN CORPUSCULAR VOLUME 80.3 fL (80.0-100.0); MEAN PLATELET VOLUME 7.9 fL (7.4-11.0); MONOCYTES # (AUTO) 0.7 x10^3/uL (0.3-0.8); MONOCYTES % (AUTO) 9.3 % (0.0-13.0); NEUTROPHILS # (AUTO) 5.3 x10^3/uL (2.2-4.8); NEUTROPHILS % (AUTO) 68.2 % (42.0-75.0); PLATELET COUNT 403 X10^3/uL (150.0-450.0); RED BLOOD COUNT 3.77 X10^6/uL (3.5-5.4); RED CELL DISTRIBUTION WIDTH 16.8 % (11.6-16.5); WHITE BLOOD COUNT 7.8 X10^3/uL (3.6-10.0)
[2019-05-07 05:04] LABS: ALANINE AMINOTRANSFERASE 10 Units/L (12-78); ALBUMIN 3.3 g/dL (3.4-5.0); ALKALINE PHOSPHATASE 44 Units/L (46-116); ASPARTATE AMINO TRANSFERASE 16 Units/L (15-37); BLOOD UREA NITROGEN 15 mg/dL (7-18); CALCIUM 9.1 mg/dL (8.5-10.1); CARBON DIOXIDE 27.8 mmol/L (21-32); CHLORIDE 106 mmol/L (98-107); COR CA(FOR HYPOALB) 9.7 mg/dL (8.5-10.1); CREATININE 0.96 mg/dL (0.55-1.02); SODIUM 144 mmol/L (136-145); TOTAL PROTEIN 7.2 g/dL (6.4-8.2); eGFR NON BLACK RACES > 60 (>60)
[2019-05-07] MEDS: TESSALON PERLES PO SCH (05:36)
[2019-05-07] MEDS: FORTAZ or TAZICEF VIAL INJ 1 G in NS 100 ML IV + SPIKE MINIBAG* 100 ML IV SCH ×2 (05:36→15:49)
[2019-05-07] MEDS: SOMA TAB 350 MG PO PRN (05:45)
--- NOTE | 2019-05-07 08:14 | RAD ---
HISTORY: Follow-up pneumonia Study: Chest PA and lateral Comparison: 05/06/2019, 05/05/2019 Findings: The heart is mildly enlarged. No congestive heart failure is noted. The lungs are now free of acute alveolar infiltrates. No pleural effusions are identified. The bony thorax is unremarkable. IMPRESSION: Minimal cardiomegaly without congestive heart failure Lungs now clear Reported By:
[2019-05-07] MEDS: PLAVIX PO SCH (09:30)
[2019-05-07] MEDS: NEURONTIN TAB 600 MG PO SCH (09:30)
[2019-05-07] MEDS: NYSTATIN SUSP PO SCH ×2 (09:30→15:48)
[2019-05-07] MEDS: VSL#3 PO SCH (09:30)
[2019-05-07] MEDS: ASPIRIN EC 81 MG PO SCH (09:30)
[2019-05-07] MEDS: SINGULAIR TAB 10 MG PO SCH (09:30)
[2019-05-07] MEDS: LEVAQUIN PREMIX IV 750 MG 750 MG/150 ML BAG IV SCH (09:31)
[2019-05-07] MEDS: ROBITUSSIN DM PO SCH ×2 (09:31→15:48)
[2019-05-07] MEDS: NexIUM PO SCH (09:31)
[2019-05-07] MEDS: NORVASC TAB 5 MG PO SCH (09:33)
[2019-05-07] MEDS: DECADRON JET NEB (RESP USE) NEB SCH ×2 (09:44→12:08)
[2019-05-07] MEDS: MUCOMYST 20% 200 MG/ML NEB SCH (09:44)
[2019-05-07 15:45] VITALS: BP 136/76
--- NOTE | 2019-07-01 21:10 | PCM.PROG ---
Progress Note - Progress Note for Day of Date of Exam: 05/05/19 - Subjective Subjective: WAS ADMITTED FOR BRONCHOPNEUMONIA, FAILED OUTPATIENT TREATMENT. TODAY, SHE IS ALERT AND ORIENTED, SITTING UP IN BED ON MORNING ROUNDS. SHE CONTINUES WITH COMPLAINTS OF SHORTNESS OF BREATH AND A PERSISTENT, NON-PRODUCTIVE COUGH. ON EXAMINATION, HEART IS REGULAR IN RATE AND RHYTHM. B ILATERAL LUNGS ARE NOTED WITH SCATTERED WHEEZING AND RHONCHI. HER VITALS THIS MORNING ARE 98.5-83-20-95%-118/55. LABS WERE OBTAINED. ABNORMAL LAB VALUES INCLUDE THE FOLLOWING: RBC 2.84, HGB 7.1, HCT 22.2, CREATININE 1.15, GLUCOSE 111, CALCIUM 8.4, 0.10, AST 14, ALT 10, ALK PHOS 36, ALBUMIN 3.0. BLOOD CULTURES ARE PENDING. TODAYS CHEST XRAY REVEALED: Persistent small ill-defined infiltrate in the right lower lung consistent with pneumonia. A CHEST CT WAS OBTAINED YESTERDAY AND REVEALED: Multifocal bilateral infiltrates worse in the lower lobes compatible with pneumonia. SHE IS CURRENTLY RECEIVING IV FORTAZ, IV LEVAQUIN, RESPIRATORY TREATMENTS, TUSSIONEX, AND TESSALON PERLES. WE WILL CONTINUE WITH CURRENT PLAN OF CARE TODAY. OTHERWISE, WE PLAN TO FOLLOW UP WITH AM LABS AND CHEST XRAY AND CONTINUE TO MONITOR PATIENT. - Past Medical Family Social History Past Med/Fam/Surg Hx: No changes since H&P Allergies: Allergies No Known Drug Allergies Allergy (Verified 01/18/18 10:24) - Review of Systems ROS: No change since H&P - Vital Signs and I&O's Vital Signs: Temperature 98.8 F Pulse Rate [Right] 70 Pulse Rate 69 Respiratory Rate 20 Blood Pressure [Left Arm] 132/66 Blood Pressure [Right Arm] 136/76 Blood Pressure 142/62 O2 Sat by Pulse Oximetry 98 - Physical Exam Oriented: Normal Eyes: Normal Ear: Normal Nose: Normal Throat: Normal Respiratory: Generalized, Diminished, Wheezes, Rhonchi Cardiovascular: Normal. negative: S3, S4, Murmur : Normal Auscultation: Bowel Sounds: Normal Tenderness: Normal Skin: Normal Musculoskeletal: Normal Psychiatric: Normal Mood Description: Calm Affect: Normal Speech Pattern: Clear, Appropriate - Laboratory and Diagnostics Result Diagrams: 05/07/19 04:35 05/07/19 04:35 Labs: 05/03/19 13:57 Blood Blood Culture - Final 05/03/19 13:53 Blood Blood Culture - Final Laboratory WBC 7.8 X10^3/uL (3.6-10.0) 05/07/19 04:35 RBC 3.77 X10^6/uL (3.5-5.4) 05/07/19 04:35 Hgb 10.0 g/dL (12.0-16.0) L 05/07/19 04:35 Hct 30.3 % (36.0-47.0) L 05/07/19 04:35 MCV 80.3 fL (80.0-100.0) 05/07/19 04:35 MCH 26.5 pg (27.0-34.0) L 05/07/19 04:35 MCHC 33.0 g/dL (33.0-35.0) 05/07/19 04:35 RDW 16.8 % (11.6-16.5) H 05/07/19 04:35 Plt Count 403 X10^3/uL (150.0-450.0) 05/07/19 04:35 Plt Count Comment Adequate (ADEQUATE) 05/05/19 04:39 MPV 7.9 fL (7.4-11.0) 05/07/19 04:35 Neut % (Auto) 68.2 % (42.0-75.0) 05/07/19 04:35 Lymph % (Auto) 19.9 % (21.0-51.0) L 05/07/19 04:35 [place] % (Auto) 9.3 % (0.0-13.0) 05/07/19 04:35 Eos % (Auto) 2.1 % (0.9-2.9) 05/07/19 04:35 Baso % (Auto) 0.5 % (0.2-1.0) 05/07/19 04:35 Neut # (Auto) 5.3 x10^3/uL (2.2-4.8) H 05/07/19 04:35 Lymph # (Auto) 1.6 X10^3/uL (1.3-2.9) 05/07/19 04:35 [place] # (Auto) 0.7 x10^3/uL (0.3-0.8) 05/07/19 04:35 Eos # (Auto) 0.2 x10^3/uL (0.0-0.2) 05/07/19 04:35 Baso # (Auto) 0.0 X10^3/uL (0.0-0.1) 05/07/19 04:35 Absolute Nucleated RBC 0.0 /100WBC 05/07/19 04:35 Plt Morphology Comment Normal (NORMAL) 05/05/19 04:39 RBC Morphology Abnormal (NORMAL) A 05/05/19 04:39 Hypochromasia Slight A 05/05/19 04:39 Anisocytosis Slight A 05/05/19 04:39 Sodium 144 mmol/L (136-145) 05/07/19 04:35 Corrected Sodium TNP 05/07/19 04:35 Potassium 4.0 mmol/L (3.5-5.1) 05/07/19 04:35 Chloride 106 mmol/L (98-107) 05/07/19 04:35 Carbon Dioxide 27.8 mmol/L (21-32) 05/07/19 04:35 BUN 15 mg/dL (7-18) 05/07/19 04:35 Creatinine 0.96 mg/dL (0.55-1.02) 05/07/19 04:35 Est GFR (MDRD) Af Amer > 60 (>60) 05/07/19 04:35 Est GFR (MDRD) Non-Af > 60 (>60) 05/07/19 04:35 Glucose 106 mg/dL (65-99) H 05/07/19 04:35 Calcium 9.1 mg/dL (8.5-10.1) 05/07/19 04:35 Corrected Calcium 9.7 mg/dL (8.5-10.1) 05/07/19 04:35 Total Bilirubin 0.20 mg/dL (0.2-1.0) 05/07/19 04:35 AST 16 Units/L (15-37) 05/07/19 04:35 ALT 10 Units/L (12-78) L 05/07/19 04:35 Alkaline Phosphatase 44 Units/L (46-116) L 05/07/19 04:35 Total Protein 7.2 g/dL (6.4-8.2) 05/07/19 04:35 Albumin 3.3 g/dL (3.4-5.0) L 05/07/19 04:35 Globulin 3.9 g/dL (2.5-4.5) 05/07/19 04:35 Albumin/Globulin Ratio 0.8 Ratio (1.1-2.1) L 05/07/19 04:35 Blood Type O POSITIVE 05/03/19 17:07 Antibody Screen Negative 05/03/19 17:07 Crossmatch See Detail 05/03/19 17:07 - Plan (1) Bronchopneumonia Status: Acute Plan: IV FORTAZ, IV LEVAQUIN, RESPIRATORY [place], SUPPLEMENTAL OXYGEN, TESSALON, TUSSIONEX, OBTAIN CHEST CT, MUCOMYST IN [place] (2) Anemia Status: Acute Qualifiers: Anemia type: iron deficiency Iron deficiency anemia type: unspecified iron deficiency Qualified Code(s): D50.9 - Iron deficiency anemia, unspecified Plan: MONITOR H&H, OBTAIN STOOLS FOR OCCULT BLOOD, TRANSFUSE IF HGB FALLS BELOW 7
--- NOTE | 2019-07-01 21:14 | PCM.PROG ---
Progress Note - Progress Note for Day of Date of Exam: 05/06/19 - Subjective Subjective: WAS ADMITTED FOR BRONCHOPNEUMONIA, FAILED OUTPATIENT TREATMENT. TODAY, SHE IS ALERT AND ORIENTED, SITTING UP IN BED ON MORNING ROUNDS. SHE CONTINUES WITH COMPLAINTS OF SHORTNESS OF BREATH AND A PERSISTENT, NON-PRODUCTIVE COUGH. ON EXAMINATION, HEART IS REGULAR IN RATE AND RHYTHM. B ILATERAL LUNGS ARE NOTED WITH SCATTERED WHEEZING AND RHONCHI. HER VITALS THIS MORNING ARE 98.2-68-20-96%-120/81. LABS WERE OBTAINED. ABNORMAL LAB VALUES INCLUDE THE FOLLOWING: HGB 9.8, HCT 29.5, GLUCOSE 108, ALT 9, ALK PHOS 42. BLOOD CULTURES ARE PENDING. TODAYS CHEST XRAY REVEALED: Near complete clearance right basilar airspace opacity. Chronic cardiomegaly and COPD without other acute cardiopulmonary process. SHE IS CURRENTLY RECEIVING IV FORTAZ, IV LEVAQUIN, RESPIRATORY TREATMENTS, TUSSIONEX, AND TESSALON PERLES. WE WILL CONTINUE WITH CURRENT PLAN OF CARE TODAY. OTHERWISE, WE PLAN TO FOLLOW UP WITH AM LABS AND CHEST XRAY AND CONTINUE TO MONITOR PATIENT. - Past Medical Family Social History Past Med/Fam/Surg Hx: No changes since H&P Allergies: Allergies No Known Drug Allergies Allergy (Verified 01/18/18 10:24) - Review of Systems ROS: No change since H&P - Vital Signs and I&O's Vital Signs: Temperature 98.8 F Pulse Rate [Right] 70 Pulse Rate 69 Respiratory Rate 20 Blood Pressure [Left Arm] 132/66 Blood Pressure [Right Arm] 136/76 Blood Pressure 142/62 O2 Sat by Pulse Oximetry 98 - Physical Exam Oriented: Normal Eyes: Normal Ear: Normal Nose: Normal Throat: Normal Respiratory: Generalized, Diminished, Wheezes, Rhonchi Cardiovascular: Normal. negative: S3, S4, Murmur : Normal Auscultation: Bowel Sounds: Normal Tenderness: Normal Skin: Normal Musculoskeletal: Normal Psychiatric: Normal Mood Description: Calm Affect: Normal Speech Pattern: Clear, Appropriate - Laboratory and Diagnostics Result Diagrams: 05/07/19 04:35 05/07/19 04:35 Labs: 05/03/19 13:57 Blood Blood Culture - Final 05/03/19 13:53 Blood Blood Culture - Final Laboratory WBC 7.8 X10^3/uL (3.6-10.0) 05/07/19 04:35 RBC 3.77 X10^6/uL (3.5-5.4) 05/07/19 04:35 Hgb 10.0 g/dL (12.0-16.0) L 05/07/19 04:35 Hct 30.3 % (36.0-47.0) L 05/07/19 04:35 MCV 80.3 fL (80.0-100.0) 05/07/19 04:35 MCH 26.5 pg (27.0-34.0) L 05/07/19 04:35 MCHC 33.0 g/dL (33.0-35.0) 05/07/19 04:35 RDW 16.8 % (11.6-16.5) H 05/07/19 04:35 Plt Count 403 X10^3/uL (150.0-450.0) 05/07/19 04:35 Plt Count Comment Adequate (ADEQUATE) 05/05/19 04:39 MPV 7.9 fL (7.4-11.0) 05/07/19 04:35 Neut % (Auto) 68.2 % (42.0-75.0) 05/07/19 04:35 Lymph % (Auto) 19.9 % (21.0-51.0) L 05/07/19 04:35 [place] % (Auto) 9.3 % (0.0-13.0) 05/07/19 04:35 Eos % (Auto) 2.1 % (0.9-2.9) 05/07/19 04:35 Baso % (Auto) 0.5 % (0.2-1.0) 05/07/19 04:35 Neut # (Auto) 5.3 x10^3/uL (2.2-4.8) H 05/07/19 04:35 Lymph # (Auto) 1.6 X10^3/uL (1.3-2.9) 05/07/19 04:35 [place] # (Auto) 0.7 x10^3/uL (0.3-0.8) 05/07/19 04:35 Eos # (Auto) 0.2 x10^3/uL (0.0-0.2) 05/07/19 04:35 Baso # (Auto) 0.0 X10^3/uL (0.0-0.1) 05/07/19 04:35 Absolute Nucleated RBC 0.0 /100WBC 05/07/19 04:35 Plt Morphology Comment Normal (NORMAL) 05/05/19 04:39 RBC Morphology Abnormal (NORMAL) A 05/05/19 04:39 Hypochromasia Slight A 05/05/19 04:39 Anisocytosis Slight A 05/05/19 04:39 Sodium 144 mmol/L (136-145) 05/07/19 04:35 Corrected Sodium TNP 05/07/19 04:35 Potassium 4.0 mmol/L (3.5-5.1) 05/07/19 04:35 Chloride 106 mmol/L (98-107) 05/07/19 04:35 Carbon Dioxide 27.8 mmol/L (21-32) 05/07/19 04:35 BUN 15 mg/dL (7-18) 05/07/19 04:35 Creatinine 0.96 mg/dL (0.55-1.02) 05/07/19 04:35 Est GFR (MDRD) Af Amer > 60 (>60) 05/07/19 04:35 Est GFR (MDRD) Non-Af > 60 (>60) 05/07/19 04:35 Glucose 106 mg/dL (65-99) H 05/07/19 04:35 Calcium 9.1 mg/dL (8.5-10.1) 05/07/19 04:35 Corrected Calcium 9.7 mg/dL (8.5-10.1) 05/07/19 04:35 Total Bilirubin 0.20 mg/dL (0.2-1.0) 05/07/19 04:35 AST 16 Units/L (15-37) 05/07/19 04:35 ALT 10 Units/L (12-78) L 05/07/19 04:35 Alkaline Phosphatase 44 Units/L (46-116) L 05/07/19 04:35 Total Protein 7.2 g/dL (6.4-8.2) 05/07/19 04:35 Albumin 3.3 g/dL (3.4-5.0) L 05/07/19 04:35 Globulin 3.9 g/dL (2.5-4.5) 05/07/19 04:35 Albumin/Globulin Ratio 0.8 Ratio (1.1-2.1) L 05/07/19 04:35 Blood Type O POSITIVE 05/03/19 17:07 Antibody Screen Negative 05/03/19 17:07 Crossmatch See Detail 05/03/19 17:07 - Plan (1) Bronchopneumonia Status: Acute Plan: IV FORTAZ, IV LEVAQUIN, RESPIRATORY [place], SUPPLEMENTAL OXYGEN, TESSALON, TUSSIONEX, OBTAIN CHEST CT, MUCOMYST IN [place] (2) Anemia Status: Acute Qualifiers: Anemia type: iron deficiency Iron deficiency anemia type: unspecified iron deficiency Qualified Code(s): D50.9 - Iron deficiency anemia, unspecified Plan: MONITOR H&H, OBTAIN STOOLS FOR OCCULT BLOOD, TRANSFUSE IF HGB FALLS BELOW 7
== END 2019-05-07 13:20 | disposition home or self-care (01) | DRG 195 ==
LOC: MED/SURG 12:09
PROVIDERS: ADMIT Internal Medicine; ATTEND Internal Medicine
DX: J18.0 Bronchopneumonia, unspecified organism; I10 Essential (primary) hypertension; R53.83 Other fatigue; R06.02 Shortness of breath; D50.9 Iron deficiency anemia, unspecified; E03.8 Other specified hypothyroidism
CPT/HCPCS: 36415; 36430; 71010; 71020; 71045; 71046; 71260; 80053; 85014; 85018; 85025; 86850; 86900; 86901; 86922; 87040; 94640; 94760; A4222; P9016; J0713; J1956; J2405; J7050; J7608; J7620; J7626

== ENCOUNTER 2020-01-01 15:31 | Observation (INO) ==
[2020-01-01 19:59] LABS: BASOPHILS % (AUTO) 0.7 % (0.2-1.0); EOSINOPHILS # (AUTO) 0.2 x10^3/uL (0.0-0.2); EOSINOPHILS % (AUTO) 3.5 % (0.9-2.9); HEMATOCRIT 23.8 % (36.0-47.0); LYMPHOCYTES % (AUTO) 29.1 % (21.0-51.0); MEAN CORPUSCULAR HEMOGLOBIN 26.9 pg (27.0-34.0); MEAN CORPUSCULAR HGB CONC 32.4 g/dL (33.0-35.0); MEAN CORPUSCULAR VOLUME 82.9 fL (80.0-100.0); MONOCYTES # (AUTO) 0.7 x10^3/uL (0.3-0.8); NEUTROPHILS # (AUTO) 3.9 x10^3/uL (2.2-4.8); NEUTROPHILS % (AUTO) 56.7 % (42.0-75.0); PLATELET COUNT 369 X10^3/uL (150.0-450.0); RED BLOOD COUNT 2.87 X10^6/uL (3.5-5.4); RED CELL DISTRIBUTION WIDTH 17.1 % (11.6-16.5); WHITE BLOOD COUNT 6.8 X10^3/uL (3.6-10.0)
[2020-01-01 20:11] LABS: ALANINE AMINOTRANSFERASE 17 Units/L (12-78); ALBUMIN 3.6 g/dL (3.4-5.0); ALKALINE PHOSPHATASE 41 Units/L (46-116); ASPARTATE AMINO TRANSFERASE 18 Units/L (15-37); BLOOD UREA NITROGEN 25 mg/dL (7-18); CALCIUM 8.4 mg/dL (8.5-10.1); CARBON DIOXIDE 30.9 mmol/L (21-32); CHLORIDE 104 mmol/L (98-107); CREATININE 1.82 mg/dL (0.55-1.02); HEMOGLOBIN 7.7 g/dL (12.0-16.0); SODIUM 139 mmol/L (136-145); eGFR NON BLACK RACES 30 (>60)
[2020-01-01 20:16] LABS: HYPOCHROMASIA SLIGHT; PLATELET MORPHOLOGY COMMENT NORMAL (NORMAL)
[2020-01-01 20:17] LABS: ANISOCYTOSIS SLIGHT
[2020-01-01 20:52] LABS: IRON 31 ug/dL (50-175)
[2020-01-01 21:15] VITALS: BMI 35.9
[2020-01-01] MEDS: PEPCID 20 MG IV PREMIX* 20 MG/50 ML BAG IV SCH ×2 (21:37→21:38)
[2020-01-01] MEDS: PROTONIX INJ 40 MG VIAL IVP SCH ×2 (21:38)
[2020-01-01] MEDS: NS 1000 ML 1,000 ML IV SCH (21:38)
--- NOTE | 2020-01-01 23:13 | RAD ---
HISTORYReason For StudySTUDYCHEST, 1 VIEWCOMPARISONOctober 2018FINDINGSThe patient is rotated. The cardiac silhouette is again mildly enlarged. The lungs are relatively clear without focal infiltrate or effusion. The bony thorax is unremarkable.IMPRESSIONMild cardiomegaly.Electronically signed by: JEAN LYN (Jan 01, 2020 23:11:57)
[2020-01-01] MEDS: AMBIEN PO PRN (23:23)
[2020-01-01] MEDS: PERCOCET TAB 5/325 MG PO PRN (23:23)
[2020-01-02] MEDS: PERCOCET TAB 5/325 MG PO PRN ×3 (06:02→20:50)
[2020-01-02 06:55] LABS: BASOPHILS # (AUTO) 0.1 X10^3/uL (0.0-0.1); BASOPHILS % (AUTO) 1.4 % (0.2-1.0); EOSINOPHILS # (AUTO) 0.2 x10^3/uL (0.0-0.2); EOSINOPHILS % (AUTO) 3.9 % (0.9-2.9); HEMATOCRIT 23.5 % (36.0-47.0); HEMOGLOBIN 7.6 g/dL (12.0-16.0); LYMPHOCYTES # (AUTO) 1.7 X10^3/uL (1.3-2.9); MEAN CORPUSCULAR HEMOGLOBIN 26.8 pg (27.0-34.0); MEAN CORPUSCULAR HGB CONC 32.2 g/dL (33.0-35.0); MEAN CORPUSCULAR VOLUME 83.4 fL (80.0-100.0); MEAN PLATELET VOLUME 8.4 fL (7.4-11.0); MONOCYTES # (AUTO) 0.5 x10^3/uL (0.3-0.8); MONOCYTES % (AUTO) 8.1 % (0.0-13.0); NEUTROPHILS # (AUTO) 3.5 x10^3/uL (2.2-4.8); NEUTROPHILS % (AUTO) 57.6 % (42.0-75.0); PLATELET COUNT 371 X10^3/uL (150.0-450.0); RED BLOOD COUNT 2.82 X10^6/uL (3.5-5.4); RED CELL DISTRIBUTION WIDTH 16.9 % (11.6-16.5)
[2020-01-02 06:57] LABS: ALANINE AMINOTRANSFERASE 17 Units/L (12-78); ALBUMIN 3.6 g/dL (3.4-5.0); ALKALINE PHOSPHATASE 34 Units/L (46-116); ASPARTATE AMINO TRANSFERASE 20 Units/L (15-37); BLOOD UREA NITROGEN 26 mg/dL (7-18); CALCIUM 8.2 mg/dL (8.5-10.1); CARBON DIOXIDE 27.4 mmol/L (21-32); CHLORIDE 103 mmol/L (98-107); CREATININE 1.99 mg/dL (0.55-1.02); SODIUM 137 mmol/L (136-145); eGFR NON BLACK RACES 27 (>60)
[2020-01-02 07:06] LABS: PLATELET MORPHOLOGY COMMENT NORMAL (NORMAL)
[2020-01-02] MEDS: PROTONIX INJ 40 MG VIAL IVP SCH ×2 (08:40→20:51)
[2020-01-02] MEDS: NS 1000 ML 1,000 ML IV SCH ×2 (08:41→20:51)
[2020-01-02] MEDS: PEPCID 20 MG IV PREMIX* 20 MG/50 ML BAG IV SCH (08:41)
--- NOTE | 2020-01-02 09:58 | DR.H&P ---
H&P - History & Physical for Day of: H&P Date: 01/01/20 - Chief Complaint Chief Complaint: ANEMIA, SOB, WEAKNESS - History of Present Illness History of Present Illness: IS A 64 YEAR OLD PATIENT OF OURS. SHE PRESENTED TO THE HOSPITAL A DIRECT ADMISSION DUE TO COMPLAINTS OF SHORTNESS OF BREATH, WEAKNESS, AND ANEMIA. SYMPTOMS STARTED APPROXIMATELY ONE WEEK AGO. OUTPATIENT LABS WERE OBTAINED ON 12/27/19 AND REVEALED A HGB OF 8.2 AND HCT 27.1. PATIENT HAS A PMH OF ANEMIA, TIA, CAD, HYPERLIPIDEMIA, HTN, COPD, GERD, HYSTERECTOMY, ANXIETY, DEPRESSION, RIGHT WRIST SURGERY, AND BACK SURGERY X2. ON ARRIVAL TO THE ER, VITALS WERE 97.9-65-20-95%-152/56. LABS WERE OBTAINED. ABNORMAL LAB VALUES INCLUDE THE FOLLOWING: RBC 2.87, HGB 7.7, HCT 23.8, BUN 25, CREATININE 1.82. CALCIUM 8.4, IRON 31, TRANSFERRIN 516, TOTAL BILI 0.10, ALK OSWALDO S 41. A CHEST XRAY WAS OBTAINED AND REVEALED: MILD CARDIOMEGALY. SHE WAS STARTED ON NS AT 80 ML/HR, PEPCID 20MG IV DAILY, PROTONIX 5/325MG Q6H PRN PAIN. WE WILL RESUME HER HOME MEDICATIONS TODAY WITH THE EXCEPTION OF HER ASPIRIN AND PLAVIX. WE WILL TRANSFUSE TWO UNITS OF PRBC AND CONSULT GASTROENTEROLOGY FOR POSSIBLE ENDOSCOPY. OTHERWISE, WE WILL FOLLOW UP WITH AM LABS AND CONTINUE TO MONITOR. - Past Medical History Past Medical History: Anemia, Anxiety, COPD, Coronary Artery Disease, Depression, Dyslipidemia, GERD, Hypertension Additional Medical History: TIA, - Past Surgical History Surgical History: , Hysterectomy, Ortho Surgery Additional Surgical History: WRIST SURGERY, BACK SURGERY X 2 - Family History Family Medical History: [place], Coronary Artery Disease, Hypertension - Social History Alcohol Use: None Drug Use: None - Medications Home Medications: No Known Drug Allergies Allergy (Verified 01/18/18 10:24) CONTINUE taking the following medications cefdinir 300 mg PO BID 01/02/20 [History] sertraline 50 mg PO Q24H 01/02/20 [History] tizanidine 4 mg PO QHS 01/02/20 [History] - Review of Systems Constitutional: See HPI, Weakness Eyes: No Symptoms Reported ENT: No Symptoms Reported Respiratory: See HPI, Shortness of Breath, SOB with Excertion Cardiovascular: No Symptoms Reported Gastrointestinal: No Symptoms Reported Genitourinary: No Symptoms Reported Musculoskeletal: No Symptoms Reported Skin: No Symptoms Reported Neurological: See HPI, Weakness - Physical Exam Vital Signs: Temperature 98.1 F Pulse Rate [Left Radial] 54 Respiratory Rate 20 Blood Pressure [Left Arm] 107/54 Blood Pressure [Right Arm] 136/76 O2 Sat by Pulse Oximetry 96 Oriented: Normal Eyes: Normal Ear: Normal Nose: Normal Throat: Normal Respiratory: Diminished Throughout Cardiovascular: Normal : Normal Auscultation: Bowel Sounds: Normal Palpation: Normal Tenderness: Normal Skin: Normal Musculoskeletal: Normal Psychiatric: Normal Mood Description: Calm Affect: Normal Speech Pattern: Clear - Assessment/Plan (1) Anemia Qualifiers: Anemia type: iron deficiency Iron deficiency anemia type: unspecified iron deficiency Qualified Code(s): D50.9 - Iron deficiency anemia, unspecified Status: Acute Plan: ADMIT, NS AT 80 ML/HR, PEPCID 20MG IV DAILY, PROTONIX 5/325MG Q6H PRN PAIN. WE WILL RESUME HER HOME MEDICATIONS TODAY WITH THE EXCEPTION OF HER ASPIRIN AND PLAVIX. TRANSFUSE 2 UNITS PRBC, CONSULT GI (2) Generalized weakness Status: Acute (3) Shortness of breath Status: Acute - Allergies Allergies/Adverse Reactions: Allergies Allergy/AdvReac Type Severity Reaction Status Date / Time No Known Drug Allergies Allergy Verified 01/18/18 10:24
[2020-01-02] MEDS: ZOLOFT PO SCH (11:25)
[2020-01-02] MEDS: SYNTHROID 112 mcg TAB PO SCH (11:25)
[2020-01-02] MEDS ORDERED: NS 250 ML IV 250 ML IV ONE (13:41)
--- NOTE | 2020-01-02 16:51 | DR.CONSULT ---
Consult - Consultation for Day of: Date: 01/02/20 - Chief Complaint Chief Complaint: Patient referred for anemia. Patient with complaints of dyspepsia and nausea. - History of Present Illness History of Present Illness: Patient is a 64 yo female who was referred for anemia. Patient with complaints of dyspepsia and nausea. Patient denies dysphagia, vomiting, abdominal pain, constipation, diarrhea, melena and hematochezia. Last Colon was 11/28/2014 which showed internal hemorrhoids and tubular adenomatous colon polyps x2. Last EGD was 07/15/16 which showed erosive gastritis, mild distal esophagitis, Pat[place] had capsule endoscopy 08/19/2016 which showed multiple large angiodysplasias in the small bowel . Hgb 7.6, Hct 23.5, Plt 371, BUN 26, creatinine 1.99, T. Bili 0.2, AST 20, ALT 17, ALP 34, Iron 30 - Past Medical History Past Medical History: Anemia, Anxiety, COPD, Coronary Artery Disease, Depression, Dyslipidemia, GERD, Hypertension Additional Medical History: TIA, - Past Surgical History Surgical History: , Cholecystectomy, Hysterectomy, Ortho Surgery Additional Surgical History: WRIST SURGERY, BACK SURGERY X 2 - Family History Family Medical History: [place], Coronary Artery Disease, Hypertension - Social History Alcohol Use: None Drug Use: None - Medications Home Medications: No Known Drug Allergies Allergy (Verified 01/18/18 10:24) CONTINUE taking the following medications cefdinir 300 mg PO BID 01/02/20 [History] sertraline 50 mg PO Q24H 01/02/20 [History] tizanidine 4 mg PO QHS 01/02/20 [History] - Review of Systems Gastrointestinal: See HPI, Nausea - Physical Exam Vital Signs: Temperature 98.3 F Pulse Rate [Left Radial] 52 Respiratory Rate 20 Blood Pressure [Left Arm] 106/51 Blood Pressure [Right Arm] 136/76 O2 Sat by Pulse Oximetry 95 Oriented: Normal Eyes: Normal Ear: Normal Nose: Normal Throat: Normal Respiratory: Clear Throughout Cardiovascular: Normal Auscultation: Bowel Sounds: Normal Palpation: Normal, Other (no distention). negative: Spleen Enlarged, Liver Enlarged, Mass Pulsatile Tenderness: Normal (no tenderness) Skin: Normal Musculoskeletal: Normal Psychiatric: Normal Mood Description: Calm Affect: Normal Speech Pattern: Clear, Appropriate - Plan Plan: Assessment. 1. Anemia. 2. GERD, Nausea. Plan. 1. Monitor Hgb, Transfuse as needed, Protonix IV, EGD in am. 2. Zofran PRN. Plan reviewed with Dr. Gandhi - Allergies Allergies/Adverse Reactions: Allergies Allergy/AdvReac Type Severity Reaction Status Date / Time No Known Drug Allergies Allergy Verified 01/18/18 10:24
[2020-01-02] MEDS ORDERED: KLONOPIN TAB 1 MG ONE (17:30)
[2020-01-02] MEDS: KLONOPIN TAB 1 MG PO SCH ×2 (17:45→20:49)
[2020-01-02] MEDS: LIPITOR TAB 40 MG PO SCH (20:49)
[2020-01-02] MEDS: ZANAFLEX PO SCH (20:49)
[2020-01-02] MEDS: TRICOR TAB 145 MG PO SCH (20:49)
[2020-01-02] MEDS ORDERED: KLONOPIN TAB 1 MG PO SCH (21:00)
[2020-01-02] MEDS: PULMICORT NEB TX 0.5 MG NEB SCH (21:08)
[2020-01-02] MEDS: DUONEB 0.5 MG/3 MG (3 mL) NEB SCH (21:08)
[2020-01-03] MEDS ORDERED: NS 250 ML IV 250 ML IV ONE (00:10)
[2020-01-03 03:34] LABS: BASOPHILS # (AUTO) 0.1 X10^3/uL (0.0-0.1); BASOPHILS % (AUTO) 0.8 % (0.2-1.0); EOSINOPHILS # (AUTO) 0.2 x10^3/uL (0.0-0.2); EOSINOPHILS % (AUTO) 2.5 % (0.9-2.9); HEMOGLOBIN 9.5 g/dL (12.0-16.0); LYMPHOCYTES # (AUTO) 1.4 X10^3/uL (1.3-2.9); LYMPHOCYTES % (AUTO) 21.2 % (21.0-51.0); MEAN CORPUSCULAR HEMOGLOBIN 27.3 pg (27.0-34.0); MEAN CORPUSCULAR HGB CONC 32.6 g/dL (33.0-35.0); MEAN CORPUSCULAR VOLUME 83.7 fL (80.0-100.0); MEAN PLATELET VOLUME 8.3 fL (7.4-11.0); MONOCYTES # (AUTO) 0.5 x10^3/uL (0.3-0.8); MONOCYTES % (AUTO) 7.7 % (0.0-13.0); NEUTROPHILS # (AUTO) 4.5 x10^3/uL (2.2-4.8); NEUTROPHILS % (AUTO) 67.8 % (42.0-75.0); PLATELET COUNT 379 X10^3/uL (150.0-450.0); RED BLOOD COUNT 3.47 X10^6/uL (3.5-5.4); RED CELL DISTRIBUTION WIDTH 16.4 % (11.6-16.5); WHITE BLOOD COUNT 6.7 X10^3/uL (3.6-10.0)
[2020-01-03 03:46] LABS: ALANINE AMINOTRANSFERASE 22 Units/L (12-78); ALBUMIN 3.7 g/dL (3.4-5.0); ALKALINE PHOSPHATASE 31 Units/L (46-116); ASPARTATE AMINO TRANSFERASE 23 Units/L (15-37); BLOOD UREA NITROGEN 23 mg/dL (7-18); CALCIUM 8.3 mg/dL (8.5-10.1); CARBON DIOXIDE 27.6 mmol/L (21-32); CHLORIDE 103 mmol/L (98-107); CREATININE 1.91 mg/dL (0.55-1.02); SODIUM 139 mmol/L (136-145); TOTAL PROTEIN 7.3 g/dL (6.4-8.2); eGFR NON BLACK RACES 28 (>60)
[2020-01-03] MEDS: DUONEB 0.5 MG/3 MG (3 mL) NEB SCH ×5 (08:50→20:49)
[2020-01-03] MEDS: PULMICORT NEB TX 0.5 MG NEB SCH ×3 (08:50→20:49)
[2020-01-03] MEDS: PROTONIX INJ 40 MG VIAL IVP SCH ×2 (08:51→20:52)
[2020-01-03] MEDS: PEPCID 20 MG IV PREMIX* 20 MG/50 ML BAG IV SCH (08:51)
[2020-01-03] MEDS ORDERED: PATIENT'S HOME MEDICATION (Fluticasone-Umeclidin-Vilanter [Trelegy Ellipta] 1 INH) IN SCH (09:00)
[2020-01-03] MEDS: NS 1000 ML 1,000 ML IV SCH ×3 (09:01→23:52)
[2020-01-03] MEDS ORDERED: DIFLUCAN 100 MG IV (MIX by PHARMACY)* 100 MG/50 ML BAG IV SCH (11:00)
[2020-01-03] MEDS ORDERED: DIPRIVAN VIAL 20 ML ONE ×2 (13:39→13:55)
[2020-01-03] MEDS: SYNTHROID 112 mcg TAB PO SCH (14:35)
[2020-01-03] MEDS: KLONOPIN TAB 1 MG PO SCH ×2 (14:35→20:52)
[2020-01-03] MEDS: ZOLOFT PO SCH (14:36)
[2020-01-03] MEDS: PERCOCET TAB 5/325 MG PO PRN (14:36)
[2020-01-03] MEDS: MAGIC MOUTHWASH MT PRN ×2 (15:53→20:53)
[2020-01-03] MEDS: AMBIEN PO PRN (20:52)
[2020-01-03] MEDS: ZANAFLEX PO SCH (20:52)
[2020-01-03] MEDS: LIPITOR TAB 40 MG PO SCH (20:52)
[2020-01-03] MEDS: TRICOR TAB 145 MG PO SCH (20:52)
[2020-01-04 06:25] LABS: BASOPHILS # (AUTO) 0.1 X10^3/uL (0.0-0.1); BASOPHILS % (AUTO) 0.8 % (0.2-1.0); EOSINOPHILS # (AUTO) 0.2 x10^3/uL (0.0-0.2); EOSINOPHILS % (AUTO) 2.8 % (0.9-2.9); HEMATOCRIT 26.8 % (36.0-47.0); HEMOGLOBIN 8.9 g/dL (12.0-16.0); LYMPHOCYTES # (AUTO) 1.5 X10^3/uL (1.3-2.9); LYMPHOCYTES % (AUTO) 21.9 % (21.0-51.0); MEAN CORPUSCULAR HEMOGLOBIN 27.5 pg (27.0-34.0); MEAN CORPUSCULAR HGB CONC 33.2 g/dL (33.0-35.0); MEAN CORPUSCULAR VOLUME 82.9 fL (80.0-100.0); MEAN PLATELET VOLUME 8.1 fL (7.4-11.0); MONOCYTES # (AUTO) 0.6 x10^3/uL (0.3-0.8); MONOCYTES % (AUTO) 9.3 % (0.0-13.0); NEUTROPHILS # (AUTO) 4.4 x10^3/uL (2.2-4.8); NEUTROPHILS % (AUTO) 65.2 % (42.0-75.0); PLATELET COUNT 344 X10^3/uL (150.0-450.0); RED BLOOD COUNT 3.24 X10^6/uL (3.5-5.4); RED CELL DISTRIBUTION WIDTH 16.4 % (11.6-16.5); WHITE BLOOD COUNT 6.8 X10^3/uL (3.6-10.0)
[2020-01-04 06:36] LABS: ALANINE AMINOTRANSFERASE 19 Units/L (12-78); ALBUMIN 3.5 g/dL (3.4-5.0); ALKALINE PHOSPHATASE 34 Units/L (46-116); ASPARTATE AMINO TRANSFERASE 22 Units/L (15-37); BLOOD UREA NITROGEN 18 mg/dL (7-18); CALCIUM 8.6 mg/dL (8.5-10.1); CARBON DIOXIDE 24.5 mmol/L (21-32); CHLORIDE 106 mmol/L (98-107); CREATININE 1.74 mg/dL (0.55-1.02); SODIUM 139 mmol/L (136-145); TOTAL PROTEIN 6.8 g/dL (6.4-8.2); eGFR NON BLACK RACES 32 (>60)
[2020-01-04] MEDS: PERCOCET TAB 5/325 MG PO PRN (07:47)
[2020-01-04] MEDS: ZOLOFT PO SCH (09:11)
[2020-01-04] MEDS: KLONOPIN TAB 1 MG PO SCH (09:11)
[2020-01-04] MEDS: PROTONIX INJ 40 MG VIAL IVP SCH (09:11)
[2020-01-04] MEDS: SYNTHROID 112 mcg TAB PO SCH (09:11)
[2020-01-04] MEDS: PEPCID 20 MG IV PREMIX* 20 MG/50 ML BAG IV SCH (09:11)
[2020-01-04] MEDS: PULMICORT NEB TX 0.5 MG NEB SCH (09:15)
[2020-01-04] MEDS: DUONEB 0.5 MG/3 MG (3 mL) NEB SCH (09:15)
[2020-01-04] MEDS ORDERED: MAALOX or MYLANTA PO ONE (10:29)
[2020-01-04] MEDS ORDERED: MAALOX or MYLANTA ONE (10:40)
[2020-01-04] MEDS: MAGIC MOUTHWASH MT PRN (10:48)
[2020-01-04 11:02] VITALS: BP 146/65
== END 2020-01-04 11:25 | disposition home or self-care (01) ==
LOC: MED/SURG
PROVIDERS: ADMIT Internal Medicine; ATTEND Internal Medicine
DX: I10 Essential (primary) hypertension; D50.8 Other iron deficiency anemias; I25.10 Atherosclerotic heart disease of native coronary artery without angina pectoris; K29.60 Other gastritis without bleeding; F41.8 Other specified anxiety disorders; K21.9 Gastro-esophageal reflux disease without esophagitis; J44.9 Chronic obstructive pulmonary disease, unspecified; E78.2 Mixed hyperlipidemia; Z79.01 Long term (current) use of anticoagulants; Z11.59 Encounter for screening for other viral diseases; R53.1 Weakness; R06.02 Shortness of breath
CPT/HCPCS: 36415; 36430; 71010; 71045; 80053; 82607; 82728; 82746; 83540; 84466; 85025; 86850; 86900; 86901; 86922; 87635; 94640; 96360; 96361; A4216; A4222; C9113; G0378; J1450; J2704; J7030; J7050; J7620; J7626; P9016; S0028

== ENCOUNTER 2023-01-10 13:06 | Observation (INO) ==
--- NOTE | 2023-01-10 16:51 | EKG ---
Test Reason : WEAKNESS, SOB Blood Pressure : */* mmHG Vent. Rate : 62 BPM Atrial Rate : 62 BPM P-R Int : 148 ms QRS Dur : 82 ms QT Int : 394 ms P-R-T Axes : 64 33 55 degrees QTc Int : 399 ms Normal sinus rhythm Normal ECG No previous ECGs available Confirmed by Ant Lin ([id number]) on 01/11/2023 7:31:49 PM Referred By: Confirmed By: Ant Lin
[2023-01-10 16:56] VITALS: BMI 31.8
[2023-01-10 17:16] LABS: BASOPHILS # (AUTO) 0.1 X10^3/uL (0.0-0.1); BASOPHILS % (AUTO) 0.8 % (0.2-1.0); EOSINOPHILS # (AUTO) 0.2 x10^3/uL (0.0-0.2); EOSINOPHILS % (AUTO) 2.7 % (0.9-2.9); HEMATOCRIT 28.2 % (36.0-47.0); HEMOGLOBIN 9.2 g/dL (12.0-16.0); LYMPHOCYTES # (AUTO) 1.6 X10^3/uL (1.3-2.9); LYMPHOCYTES % (AUTO) 25.2 % (21.0-51.0); MEAN CORPUSCULAR HEMOGLOBIN 27.7 pg (27.0-34.0); MEAN CORPUSCULAR HGB CONC 32.7 g/dL (33.0-35.0); MEAN CORPUSCULAR VOLUME 84.6 fL (80.0-100.0); MEAN PLATELET VOLUME 8.1 fL (7.4-11.0); MONOCYTES # (AUTO) 0.6 x10^3/uL (0.3-0.8); MONOCYTES % (AUTO) 9.3 % (0.0-13.0); NEUTROPHILS # (AUTO) 3.9 x10^3/uL (2.2-4.8); PLATELET COUNT 457 X10^3/uL (150.0-450.0); RED BLOOD COUNT 3.33 X10^6/uL (3.5-5.4); RED CELL DISTRIBUTION WIDTH 15.6 % (11.6-16.5); WHITE BLOOD COUNT 6.3 X10^3/uL (3.6-10.0)
[2023-01-10 17:32] LABS: ALANINE AMINOTRANSFERASE 28 Units/L (12-78); ALBUMIN 4.1 g/dL (3.4-5.0); ALKALINE PHOSPHATASE 35 Units/L (46-116); ASPARTATE AMINO TRANSFERASE 32 Units/L (15-37); BLOOD UREA NITROGEN 28 mg/dL (7-18); CALCIUM 8.6 mg/dL (8.5-10.1); CARBON DIOXIDE 29.9 mmol/L (21-32); CHLORIDE 102 mmol/L (98-107); CREATINE KINASE 447 Units/L (26-192); CREATININE 1.64 mg/dL (0.55-1.02); GLUCOSE 79 mg/dL (65-99); POTASSIUM 4.2 mmol/L (3.5-5.1); SODIUM 140 mmol/L (136-145); TOTAL PROTEIN 7.7 g/dL (6.4-8.2); eGFR NON BLACK RACES 33 (>60)
[2023-01-10] MEDS: NS 1,000 ML IV 1,000 ML IV SCH (17:56)
[2023-01-10 20:05] LABS: BILIRUBIN,URINE NEGATIVE (NEGATIVE); BLOOD/HEMOGLOBIN,URINE NEGATIVE (NEGATIVE); GLUCOSE, URINE NEGATIVE (NEGATIVE); KETONES,URINE NEGATIVE (NEGATIVE); LEUKOCYTE ESTERASE ,URINE 1+ (NEGATIVE); NITRITES,URINE NEGATIVE (NEGATIVE); PROTEIN,URINE NEGATIVE (NEGATIVE); UROBILINOGEN,URINE NORMAL (NORMAL)
[2023-01-10 20:10] LABS: APPEARANCE,URINE CLEAR (CLEAR); COLOR,URINE YELLOW (YELLOW)
[2023-01-10] MEDS ORDERED: AMBIEN PO PRN (20:16)
[2023-01-10] MEDS ORDERED: NORCO 5/325 MG TAB PO PRN (20:16)
[2023-01-10 20:18] LABS: RBC,URINE 0-2 /HPF (0-3)
[2023-01-10 20:19] LABS: BACTERIA,URINE TRACE /HPF (NEGATIVE); HYALINE CASTS, URINE FEW /LPF (NEGATIVE); SQUAMOUS EPITHELIAL CELL,UR RARE /HPF (NEGATIVE)
[2023-01-11] MEDS: NS 1,000 ML IV 1,000 ML IV SCH (05:29)
[2023-01-11 06:08] LABS: BASOPHILS # (AUTO) 0.1 X10^3/uL (0.0-0.1); BASOPHILS % (AUTO) 1.1 % (0.2-1.0); EOSINOPHILS # (AUTO) 0.2 x10^3/uL (0.0-0.2); EOSINOPHILS % (AUTO) 3.9 % (0.9-2.9); HEMOGLOBIN 9.9 g/dL (12.0-16.0); LYMPHOCYTES # (AUTO) 1.8 X10^3/uL (1.3-2.9); MEAN CORPUSCULAR HEMOGLOBIN 27.8 pg (27.0-34.0); MEAN CORPUSCULAR VOLUME 84.1 fL (80.0-100.0); MEAN PLATELET VOLUME 8.5 fL (7.4-11.0); MONOCYTES # (AUTO) 0.5 x10^3/uL (0.3-0.8); MONOCYTES % (AUTO) 8.9 % (0.0-13.0); NEUTROPHILS # (AUTO) 3.1 x10^3/uL (2.2-4.8); NEUTROPHILS % (AUTO) 54.1 % (42.0-75.0); PLATELET COUNT 485 X10^3/uL (150.0-450.0); RED BLOOD COUNT 3.57 X10^6/uL (3.5-5.4); RED CELL DISTRIBUTION WIDTH 15.8 % (11.6-16.5); WHITE BLOOD COUNT 5.8 X10^3/uL (3.6-10.0)
[2023-01-11 06:40] LABS: ALANINE AMINOTRANSFERASE 27 Units/L (12-78); ALKALINE PHOSPHATASE 38 Units/L (46-116); ASPARTATE AMINO TRANSFERASE 35 Units/L (15-37); BLOOD UREA NITROGEN 21 mg/dL (7-18); CALCIUM 8.7 mg/dL (8.5-10.1); CARBON DIOXIDE 27.5 mmol/L (21-32); CHLORIDE 105 mmol/L (98-107); CREATINE KINASE 557 Units/L (26-192); CREATININE 1.19 mg/dL (0.55-1.02); GLUCOSE 87 mg/dL (65-99); POTASSIUM 4.4 mmol/L (3.5-5.1); SODIUM 143 mmol/L (136-145); TOTAL PROTEIN 7.5 g/dL (6.4-8.2); eGFR NON BLACK RACES 48 (>60)
--- NOTE | 2023-01-11 07:46 | RAD ---
HISTORYweakness, sobSTUDYCHEST, 1 VIEWCOMPARISONNone available at time this dictation.TECHNIQUEPA or AP view of the chestFINDINGSThe cardiac and mediastinal contours are within normal limits. The lungs are clear without focal consolidation or segmental collapse. No pleural effusion or pneumothorax. Soft tissue attenuation limits evaluation.IMPRESSIONNo acute pulmonary process.Electronically signed by: Xavi Lipscomb (Jan 11, 2023 07:45:09)
[2023-01-11 08:16] VITALS: TEMP 97.6
[2023-01-11] MEDS ORDERED: ZESTORETIC 20/25 MG PO SCH (09:00)
[2023-01-11] MEDS ORDERED: ZOLOFT PO SCH (09:00)
[2023-01-11] MEDS ORDERED: NexIUM PO SCH (09:00)
[2023-01-11] MEDS ORDERED: SYNTHROID 112 mcg TAB PO SCH (09:00)
[2023-01-11] MEDS ORDERED: ZANAFLEX PO SCH (09:00)
[2023-01-11] MEDS ORDERED: PLAVIX PO SCH (09:00)
[2023-01-11] MEDS ORDERED: NORVASC TAB 5 MG PO SCH (09:00)
[2023-01-11] MEDS ORDERED: PERCOCET TAB 5/325 MG PO PRN (09:01)
[2023-01-11] MEDS ORDERED: TORADOL 30 MG VIAL IVP ONE (10:12)
[2023-01-11 13:58] VITALS: BP 127/58; PULSE 53; O2SAT 98
[2023-01-11] MEDS ORDERED: LIPITOR TAB 40 MG PO SCH (21:00)
[2023-01-11] MEDS ORDERED: TRICOR TAB 145 MG PO SCH (21:00)
[2023-01-11] MEDS ORDERED: KLONOPIN TAB 1 MG PO SCH (21:00)
[2023-01-11] MEDS ORDERED: AMBIEN PO SCH (21:00)
--- NOTE | 2023-02-02 23:28 | DR.CARTERS ---
Short Stay Summary - Admission Date Date of Admission: 01/10/23 - Discharge Date Discharge Date: 01/11/23 - Admission Diagnoses (1) Anemia Status: Acute (2) Generalized weakness Status: Acute (3) Shortness of breath Status: Acute - Discharge Medications Discharge Medications: Home Medication List cyanocobalamin (vitamin B-12) 1,000 mcg/mL injection solution 1 ml subcut QMONTH 01/10/23 [History] gabapentin 800 mg tablet 800 mg PO TID pain 01/10/23 [History] oxycodone-acetaminophen 10 mg-325 mg tablet 1 tab PO Q6H PRN 01/10/23 [History] tizanidine 4 mg tablet 4 mg PO BID 01/10/23 [History] iron-folic acid-multivitamin, mineral comb#15 106 mg iron-1 mg capsule (Hemocyte-Plus) 1 cap PO DAILY #30 caps 01/11/23 [Rx] Prescriptions: iron-folic acid-mv, min cmb#15 [Hemocyte-Plus] Roland Mercedes [place] - Hospital Course Hospital Course: IS A 67 YEAR OLD PATIENT OF OURS. SHE WAS A DIRECT ADMISSION TO THE HOSPTIAL FOR FURTHER EVALUATION AND TREATMENT OF ANEMIA, GENERALIZED WEAKNESS, AND SHORNESS OF BREATH. SHE REPORTED SYMPTOMS OF GENERALIZED WEAKNESS AND SHORTNESS OF BREATH. SHE REPORTED THAT HER SYMPTOMS STARTED ABOUT A WEEK AGO. OUTPATIENT LABS WERE OBTAINED AND REVEALED A HEMOGLOBIN THAT WAS BELOW 8.0 G/DL. HER PMH INCLUDES: TIA, CAD, HYPERLIPIDEMIA, HTN, COPD, GERD, CHRONIC LOW BACK PAIN, HYPOTHYROIDISM, ANEMIA, , HYSTERECTOMY, BACK SURGERY, AND RIGHT WRIST SURGERY. ON ARRIVAL TO THE HOSPITAL, HER VITALS WERE: 98.5-64-20-95%-142/65. LABS WERE OBTAINED. WBC 6.3, RBC 3.33, HGB 9.2, HCT 28.2, PLT COUNT 457, SODIUM 140, POTASSIUM 4.2, CHLORIDE 102, BUN 28, CREATININE 1.64, GLUCOSE 79, CALCIUM 8.6, TOTAL BILIRUBIN 0.30, AST 32, ALT 28, ALK PHOS 447, CREATINE KINASE 447, TROPONIN 7.7, ALBUMIN 4.1. A URINALYSIS WAS OBTAINED AND REVEALED: WBC 3-5, RBC 0-2, LEUKOCYTES 1+, BACTERIA TRACE. A URINE CULTURE WAS SET UP. A CHEST XRAY WAS OBTAINED AND REVEALED: NO ACUTE PULMONARY PROCESS. EKG REVEALED: NORMAL SINUS RHYTHM WITH HR 62 BPM. SHE WAS STARTED ON NORMAL SALINE AT 80 ML/HR, NORCO 5/325 Q6H PRN, AMBIEN 5MG HS, AMLODIPINE 5MG DAILY, ATORVASTATIN 40MG HS, CLONAZEPAM 1MG HS, PLAVIX 75MG DAILY, NEXIUM 40MG BID, TRICOR 145MG HS, SYNTHROID 112 MCG DAILY, ZOLOFT 50MG DAILY, ZANAFLEX 4MG BID, LISINOPRIL/HCTZ DAILY. OTHERWISE, WE PLANNED TO FOLLOW-UP WITH AM LABS AND CONTINUE TO MONITOR. ON THE MORNING FOLLOWING ADMISSION, PATIENT IS ALERT AND ORIENTED, LYING IN BED ON MORNING ROUNDS. SHE CONTINUES TO COMPLAIN OF GENERALIZED WEAKNESS, BUT DENIES SHORTNESS OF BREATH OR OTHER COMPLAINTS. SHE HAS HAD AN UNEVENTFUL NIGHT. ON EXAMINATION, HEART IS REGULAR IN RATE AND RHYTHM. BILATERAL LUNGS ARE CLEAR TO AUSCULTATION. ABDOMEN IS ROUND, SOFT, AND NON-TENDER WITH NORMAL BOWEL SOUNDS NOTED IN ALL QUADRANTS. GOOD RANGE OF MOTION NOTED TO UPPER AND LOWER EXTREMITIES WITH NO EDEMA NOTED. HER VITALS THIS MORNING ARE: 97.6-60-20-97%-150/68. LABS WERE OBTAINED. WBC 5.8, RBC 3.57, HGB 9.9, HCT 30.0, PLT COUNT 485, SODIUM 143, POTASSIUM 4.4, CHLORIDE 105, CARBON DIOXIDE 27.5, BUN 21, CREATININE 1.19, GLUCOSE 87, CALCIUM 8.7, AST 35, ALT 27, ALK PHOS 38, CREATINE KINASE 557, TOTAL PROTEIN 7.5, ALBUMIN 4.0. URINE CULTURE IS PENDING. WE PLANNED FOR DISCHARGE. INSTRUCTIONS FOR MEDICATIONS AND FOLLOW-UP WERE DISCUSSED WITH PATIENT. SHE VERBALIZED UNDERSTANDING OF ALL ORDERS. SHE WAS GIVEN A NEW PRESCRIPTION FOR HEMOCYTE PLUS 1 CAPSULE DAILY AND INSTRUCTED TO CONTINUE HER OTHER MEDICATIONS WITH NO CHANGES MADE TO DOSAGES. SHE WAS INSTRUCTED TO FOLLOW-UP IN THE OFFICE ON 01/19/23 AT 11:20. SHE WAS DISCHARGED HOME WITH FAMILY IN STABLE CONDITION. TIME SPENT ON CLINICAL ASSESSMENT, REVIEWING LABS AND IMAGING, DECISION MAKING, DISCHARGE INSTRUCTIONS, PREPARING DISCHARGE PAPERS, AND DOCUMENTATION GREATER THAN 75 MINUTES. - Discharge Plan Disposition: 01 HOME, SELF-CARE Condition: Stable Prescriptions: iron-folic acid-mv, min cmb#15 [Hemocyte-Plus] 1 cap PO DAILY #30 caps - Follow up/Referrals Follow up/Referrals: TOD AUSTIN [Nurse Practitioner] - 01/19/23 11:20 am - Instructions Instructions: Shortness of Breath, Adult, [id number], Weakness, [id number], Iron Deficiency Anemia, Adult, [id number] Additional Instructions: DIET TOLERATED. ACTIVITY TOLERATED.
== END 2023-01-11 14:00 | disposition home or self-care (01) ==
LOC: MED/SURG
PROVIDERS: ADMIT Internal Medicine; ATTEND Internal Medicine
DX: K21.9 Gastro-esophageal reflux disease without esophagitis; R06.02 Shortness of breath; R53.1 Weakness; I10 Essential (primary) hypertension; E78.2 Mixed hyperlipidemia; E03.8 Other specified hypothyroidism; Z79.899 Other long term (current) drug therapy; D64.9 Anemia, unspecified